=== PATIENT | male | born 1955 | race Caucasian/White ===

== ENCOUNTER 2020-06-17 13:02 | Emergency (ER) | payer OTHER ==
--- NOTE | 2020-06-17 13:32 | ERPHSYRPT ---
- History of Present Illness Time Seen by Provider: 06/17/20 13:15 Source: patient Exam Limitations: no limitations Patient Subjective Stated Complaint: Pt states that he was moving a dresser on 05/25/20 and felt a lump around his umbilicus and then about 2 days after that he began having difficuluty breathing, reports that he can calm himself down and improve his breathing but is unable to today, pt has pain at the lower portion of ribs that goes down to his umbilicus Triage Nursing Assessment: Pt brought to the ER by his self, hypertensive, tachypnea, wheezing, skin n/w/d, pulses normal, rates rib/umbilicus pain as 12/20 Physician History: This is a 64-year-old obese white male who was recently diagnosed (02/2020) with diabetes, hypertension and presumed congestive heart failure and placed on losartan/potassium, furosemide and insulin to treat the above. In the last 2 weeks, the patient states that his shortness of breath has been worsening especially with activity. Today, the patient states he was having more difficulty breathing with activity and was wheezing. Patient denies chest pain. He denies cough. Patient continues to smoke approximately 2 to 3 cigarettes a day in the last 2 to 3 weeks. He is a longtime smoker of cigarettes. Patient's primary care physician is Dr. Roberts. Patient is here for worsening shortness of breath. Patient's room air oxygenation level is 95%. Timing/Duration: week(s) (2 weeks), intermittent, worse Activities at Onset: activity Severity of Dyspnea-Max: mild Severity of Dyspnea-Current: mild Possible Cause: occasional episodes Modifying Factors: Improves With: activity (Worsens) Associated Symptoms: No chest pain/discomfort, No fever, No weakness Allergies/Adverse Reactions: No Known Drug Allergies Allergy (Verified 06/17/20 13:15) Home Medications: Furosemide 40 mg PO DAILY 06/17/20 [History] Insulin Glargine,Hum.rec.anlog [Basaglar Kwikpen U-100] 40 unit SQ BID 06/17/20 [History] Losartan Potassium 100 mg PO DAILY 06/17/20 [History] Potassium Chloride 20 meq PO DAILY 06/17/20 [History] Hx Influenza Vaccination/Date Given: No Travel Risk - International Travel Have you traveled outside of the country in past 3 weeks: No - Coronavirus Screening Are you exhibiting any of the following symptoms?: No Close contact with a COVID-19 positive Pt in past 14-21 Days: No - Review of Systems Constitutional: No Symptoms Eyes: No Symptoms Ears, Nose, & Throat: No Symptoms Respiratory: Dyspnea, Dyspnea on Exertion (CRUZ), Wheezing Cardiac: No Symptoms Abdominal/Gastrointestinal: No Symptoms Genitourinary Symptoms: No Symptoms Musculoskeletal: No Symptoms Skin: No Symptoms Neurological: No Symptoms Psychological: No Symptoms Endocrine: No Symptoms Hematologic/Lymphatic: No Symptoms Immunological/Allergic: No Symptoms All Other Systems: Reviewed and Negative - Past Medical History Pertinent Past Medical History: Yes Neurological History: No Pertinent History ENT History: No Pertinent History Cardiac History: Hypertension Respiratory History: No Pertinent History Endocrine Medical History: Diabetes Type II Musculoskeletal History: No Pertinent History GI Medical History: No Pertinent History History: No Pertinent History Psycho-Social History: No Pertinent History Male Reproductive Disorders: No Pertinent History - Past Surgical History Past Surgical History: Yes Neuro Surgical History: No Pertinent History Cardiac: No Pertinent History Respiratory: No Pertinent History Gastrointestinal: No Pertinent History Genitourinary: No Pertinent History Musculoskeletal: No Pertinent History Male Surgical History: No Pertinent History - Social History Smoking Status: Current every day smoker Exposure to second hand smoke: Yes Drug Use: none Patient Lives Alone: Yes - Nursing Vital Signs Nursing Vital Signs: Initial Vital Signs Respiratory Rate 23 06/17/20 13:04 O2 Sat by Pulse Oximetry 96 06/17/20 13:04 Pain Scale Pain Intensity 5 - Physical Exam General Appearance: no apparent distress, mild distress, alert, anxiety, obese Eye Exam: PERRL/EOMI, eyes nml inspection Ears, Nose, Throat Exam: hearing grossly normal, normal ENT inspection, normal pharynx Neck Exam: normal inspection, non-tender, supple, full range of motion Respiratory Exam: airway intact, wheezing (Bilateral, mild expiratory wheezes), No chest tenderness, No respiratory distress, No stridor Cardiovascular/Chest Exam: normal heart sounds, regular rate/rhythm, murmur, normal peripheral pulses Abdominal/Gastrointestinal Exam: soft, normal bowel sounds, hernia (Reducible umbilical hernia), No tenderness Rectal Exam: not done Extremity Exam: non-tender, normal range of motion, pedal edema (Mild at the fe et and distal ankles bilaterally) Neurologic Exam: alert, oriented x 3, cooperative, plc engineer II-XII nml as tested, normal mood/affect, nml cerebellar function, nml station & gait, sensation nml Skin Exam: normal color, warm, dry Lymphatic Exam: No adenopathy SpO2 Interpretation: normal SpO2: 96 O2 Delivery: Room Air - Course Nursing assessment & vital signs reviewed: Yes EKG Interpreted by Me: RATE ([id number]), Left [place] Deviation, NORMAL INTERVALS, NORMAL QRS, Other (There is ventricular bigeminy noted. No acute ischemic changes. There are no comparison EKGs available) Ordered Tests: Active Orders 24 hr Category Date Time Status Mammalogist STAT Care 06/17/20 13:32 Active EKG-ER Only STAT Care 06/17/20 13:32 Active IV Insertion STAT Care 06/17/20 13:32 Active Pulse Oximetry (ED) STAT Care 06/17/20 13:32 Active CHEST 1 VIEW (PORTABLE) Stat Exams 06/17/20 13:32 Completed BLOOD CULTURE Stat Lab 06/17/20 14:30 Ordered CBC W DIFF Stat Lab 06/17/20 13:10 Completed CMP Stat Lab 06/17/20 13:10 Completed D-DIMER QUANTITATIVE Stat Lab 06/17/20 13:10 Completed NT PRO BNP Stat Lab 06/17/20 13:10 Completed PROTIME WITH INR Stat Lab 06/17/20 13:10 Completed TROPONIN Q3H Lab 06/17/20 13:10 Completed TROPONIN Q3H Lab 06/17/20 16:45 Ordered TROPONIN Q3H Lab 06/17/20 19:45 Ordered TROPONIN Q3H Lab 06/17/20 22:45 Ordered TROPONIN Q3H Lab 06/18/20 01:45 Ordered Respiratory Therapy Assessment DAILY RT 06/17/20 13:50 Active Medication Summary Generic Name Dose Route Start Last Admin Trade Name Freq PRN Reason Stop Dose Admin Ceftriaxone Sodium/Dextrose 1 g in 50 mls @ 100 mls/hr 06/17/20 14:23 Rocephin 1 Gm-D5w 50 Ml Bag IV 06/17/20 14:52 STAT STA Discontinued Medications Generic Name Dose Route Start Last Admin Trade Name Freq PRN Reason Stop Dose Admin Albuterol/Ipratropium Confirm 06/17/20 13:36 Duoneb 0.5-3 Mg/3 Ml Neb Administered 06/17/20 13:37 Dose 3 ml IH .STK-MED ONE Albuterol/Ipratropium 3 ml 06/17/20 13:39 06/17/20 13:46 Duoneb 0.5-3 Mg/3 Ml Neb IH 06/17/20 13:40 3 ml STAT ONE Administration Methylprednisolone Sodium Succinate 125 mg 06/17/20 14:24 Solu-Medrol 125 Mg IV 06/17/20 14:25 STAT ONE Lab/Rad Data: Laboratory Result Diagrams 06/17/20 13:10 06/17/20 13:10 Laboratory Results 06/17/20 06/17/20 06/17/20 Range/Units 13:10 13:10 13:10 WBC (4.0-10.5) K/mm3 RBC (4.1-5.6) M/mm3 Hgb (12.5-18.0) gm/dl Hct (42-50) % MCV (78-100) fl MCH (26-32) pg MCHC (32-36) g/dl RDW (11.5-14.0) % Plt Count (150-450) K/mm3 MPV (7.5-11.0) fl Gran % (36.0-66.0) % Eos # (Auto) (0-0.5) Absolute Lymphs (auto) (1.0-4.6) Absolute Monos (auto) (0.0-1.3) Lymphocytes % (24.0-44.0) % Monocytes % (0.0-12.0) % Eosinophils % (0.00-5.0) % Basophils % (0.0-0.4) % Absolute Granulocytes (1.4-6.9) Basophils # (0-0.4) PT 13.3 H (8.83-12.87) SECONDS INR 1.18 (0.8-3.0) D-Dimer 292 (215-500) ng/mL Sodium 141 (137-145) mmol/L Potassium 4.3 (3.5-5.1) mmol/L Chloride 108 H (98-107) mmol/L Carbon Dioxide 28 (22-30) mmol/L Anion Gap 8.9 (5-15) MEQ/L BUN 16 (9-20) mg/dL Creatinine 0.75 (0.66-1.25) mg/dL Estimated GFR > 60.0 ML/MIN Glucose 99 (74-106) mg/dL Calcium 9.1 (8.4-10.2) mg/dL Total Bilirubin 0.70 (0.2-1.3) mg/dL AST 22 (17-59) U/L ALT 19 (0-50) U/L Alkaline Phosphatase 69 (38-126) U/L Troponin I < 0.012 (0.000-0.034) ng/mL NT-Pro-B Natriuret Pep 195 (0-900) pg/mL Serum Total Protein 6.8 (6.3-8.2) g/dL Albumin 4.1 (3.5-5.0) g/dL 06/17/20 Range/Units 13:10 WBC 11.5 H (4.0-10.5) K/mm3 RBC 4.85 (4.1-5.6) M/mm3 Hgb 15.2 (12.5-18.0) gm/dl Hct 48.4 (42-50) % MCV 99.8 (78-100) fl MCH 31.3 (26-32) pg MCHC 31.4 L (32-36) g/dl RDW 13.9 (11.5-14.0) % Plt Count 260 (150-450) K/mm3 MPV 10.8 (7.5-11.0) fl Gran % 59.6 (36.0-66.0) % Eos # (Auto) 0.23 (0-0.5) Absolute Lymphs (auto) 3.29 (1.0-4.6) Absolute Monos (auto) 1.09 (0.0-1.3) Lymphocytes % 28.6 (24.0-44.0) % Monocytes % 9.5 (0.0-12.0) % Eosinophils % 2.0 (0.00-5.0) % Basophils % 0.3 (0.0-0.4) % Absolute Granulocytes 6.87 (1.4-6.9) Basophils # 0.04 (0-0.4) PT (8.83-12.87) SECONDS INR (0.8-3.0) D-Dimer (215-500) ng/mL Sodium (137-145) mmol/L Potassium (3.5-5.1) mmol/L Chloride (98-107) mmol/L Carbon Dioxide (22-30) mmol/L Anion Gap (5-15) MEQ/L BUN (9-20) mg/dL Creatinine (0.66-1.25) mg/dL Estimated GFR ML/MIN Glucose (74-106) mg/dL Calcium (8.4-10.2) mg/dL Total Bilirubin (0.2-1.3) mg/dL AST (17-59) U/L ALT (0-50) U/L Alkaline Phosphatase (38-126) U/L Troponin I (0.000-0.034) ng/mL NT-Pro-B Natriuret Pep (0-900) pg/mL Serum Total Protein (6.3-8.2) g/dL Albumin (3.5-5.0) g/dL - Progress Progress: improved, re-examined Air Movement: good Progress Note: 06/17/20 14:27 Chest x-ray shows left costophrenic angle infiltrate (mild) versus atelectasis. Blood Culture(s) Obtained: Yes Antibiotics given: Yes Counseled pt/family regarding: lab results, diagnosis, need for follow-up, rad results - Departure Departure Disposition: Home Clinical Impression: Infiltrate of left lung present on chest x-ray Condition: Stable Critical Care Time: No Referrals: GITA ROBERTS [Primary Care Provider] - Additional Instructions: Take your medication as prescribed. Fill your new prescriptions and take as prescribed. Follow-up with your primary care physician for further management. Return to the emergency department if your symptoms worsen. Prescriptions: Prednisone 10 mg [Deltasone 10 mg] 10 mg PO TID #12 tablet Albuterol 8 gm Mdi Hfa [Ventolin Hfa MDI] 8 gm IH Q4H #1 hfa.aer.ad Azithromycin 250 mg [Zithromax 250 MG TABLET] 250 mg PO ZPACK #6 tablet
[2020-06-17] MEDS ORDERED: DUONEB 0.5-3 MG/3 ml Neb IH ONE ×2 (13:36→13:39)
[2020-06-17 13:44] LABS: Absolute Neutrophil Ct (ANC) 6.87 (1.4-6.9); BASOPHIL % 0.3 % (0.0-0.4); Basophil (Absolute #) 0.04 (0-0.4); Eosinophil (Absolute #) 0.23 (0-0.5); Hematocrit 48.4 % (42-50); Hemoglobin 15.2 gm/dl (12.5-18.0); Lymphocyte (Absolute #) 3.29 (1.0-4.6); Lymphocytes % 28.6 % (24.0-44.0); Mean Cell Volume 99.8 fl (78-100); Mean Corpuscular Hemoglobin 31.3 pg (26-32); Mean Corpuscular Hgb Concent. 31.4 g/dl (32-36); Mean Platelet Volume 10.8 fl (7.5-11.0); Monocyte (Absolute #) 1.09 (0.0-1.3); Monocytes % 9.5 % (0.0-12.0); Neutrophil % 59.6 % (36.0-66.0); Platelet Count 260 K/mm3 (150-450); Red Blood Count 4.85 M/mm3 (4.1-5.6); Red Cell Distribution Width 13.9 % (11.5-14.0); White Blood Count 11.5 K/mm3 (4.0-10.5)
[2020-06-17 13:54] VITALS: O2SAT 96
[2020-06-17 13:55] LABS: INR 1.18 (0.8-3.0); PROTIME 13.3 SECONDS (8.83-12.87)
[2020-06-17 14:08] LABS: ALBUMIN 4.1 g/dL (3.5-5.0); ALKALINE PHOSPHATASE 69 U/L (38-126); ANION GAP 8.9 MEQ/L (5-15); BLOOD UREA NITROGEN 16 mg/dL (9-20); CHLORIDE 108 mmol/L (98-107); Calcium 9.1 mg/dL (8.4-10.2); Carbon Dioxide 28 mmol/L (22-30); Creatinine 1 0.75 mg/dL (0.66-1.25); EST GLOMERULAR FILTRATION RATE > 60.0 ML/MIN; Glucose 99 mg/dL (74-106); NT PRO BNP 195 pg/mL (0-900); Potassium 4.3 mmol/L (3.5-5.1); SGOT/AST 22 U/L (17-59); SGPT/ALT 19 U/L (0-50); SODIUM 141 mmol/L (137-145); Total Protein 6.8 g/dL (6.3-8.2)
--- NOTE | 2020-06-17 14:08 | XRAY ---
Indication: Short of breath. Comparison: None Portable chest hyperinflated with left costophrenic angle hazy opacity, infiltrate versus atelectasis. Remaining heart and lungs unremarkable. Bony thorax intact with mild degenerative changes.
[2020-06-17] MEDS ORDERED: ROCEPHIN 1 Gm-D5w 50 ml Bag** 1 G/50 ML IVPB IV STA (14:23)
[2020-06-17] MEDS ORDERED: solu-MEDROL 125 MG IV ONE (14:24)
[2020-06-17] MEDS ORDERED: solu-MEDROL 125 MG ONE (14:29)
[2020-06-17] MEDS ORDERED: ROCEPHIN 1 Gm-D5w 50 ml Bag** 1 G/50 ML IVPB IV ONE (14:30)
[2020-06-17 14:41] VITALS: BP 113/96; PULSE 78
== END 2020-06-17 14:57 | disposition home or self-care (01) ==
LOC: ED 13:02
DX: R91.8 Other nonspecific abnormal finding of lung field (principal); R06.2 Wheezing; E11.9 Type 2 diabetes mellitus without complications; I10 Essential (primary) hypertension; Z79.899 Other long term (current) drug therapy
CPT/HCPCS: 36000; 36415; 71045; 80053; 83880; 84484; 85025; 85379; 85610; 87040; 93005; 93041; 94640; 94760; 96374; 99284; J0696; J2930; A9270-GY

== ENCOUNTER 2021-04-27 16:01 | Observation (INO) | payer OTHER ==
[2021-04-27] MEDS ORDERED: DUONEB 0.5-3 MG/3 ml Neb IH ONE ×2 (16:07→16:37)
[2021-04-27] MEDS ORDERED: solu-MEDROL 125 MG, Sterile H2O 10 ml 2 ML IV ONE ×2 (16:07)
[2021-04-27] MEDS ORDERED: Sodium Chloride 0.9% 1000 ML 1,000 ML IV SCH (16:15)
[2021-04-27] MEDS ORDERED: solu-MEDROL ONE ×2 (16:17→22:57)
[2021-04-27] MEDS ORDERED: Sterile H2O 10 ml IJ ONE ×2 (16:17→22:57)
[2021-04-27] MEDS ORDERED: Sodium Chloride 0.9% 1000 ML 1,000 ML ONE (16:17)
[2021-04-27 16:33] LABS: Absolute Neutrophil Ct (ANC) 7.28 (1.4-6.9); BASOPHIL % 0.5 % (0.0-0.4); Basophil (Absolute #) 0.06 (0-0.4); Eosinophil % 5.6 % (0.00-5.0); Eosinophil (Absolute #) 0.68 (0-0.5); Hematocrit 49.5 % (42-50); Hemoglobin 15.8 gm/dl (12.5-18.0); Lymphocyte (Absolute #) 3.04 (1.0-4.6); Lymphocytes % 25.2 % (24.0-44.0); Mean Cell Volume 99.8 fl (78-100); Mean Corpuscular Hemoglobin 31.9 pg (26-32); Mean Corpuscular Hgb Concent. 31.9 g/dl (32-36); Mean Platelet Volume 10.2 fl (7.5-11.0); Monocytes % 8.3 % (0.0-12.0); Neutrophil % 60.4 % (36.0-66.0); Platelet Count 249 K/mm3 (150-450); Red Blood Count 4.96 M/mm3 (4.1-5.6); Red Cell Distribution Width 13.9 % (11.5-14.0); White Blood Count 12.1 K/mm3 (4.0-10.5)
[2021-04-27 16:40] LABS: INR 1.06 (0.8-3.0); PROTIME 12.5 SECONDS (9.4-12.5)
[2021-04-27 16:53] LABS: ALKALINE PHOSPHATASE 66 U/L (38-126); ANION GAP 12.9 MEQ/L (5-15); BLOOD UREA NITROGEN 18 mg/dL (9-20); CHLORIDE 105 mmol/L (98-107); Calcium 8.8 mg/dL (8.4-10.2); Carbon Dioxide 26 mmol/L (22-30); Creatinine 1 0.85 mg/dL (0.66-1.25); EST GLOMERULAR FILTRATION RATE > 60.0 ML/MIN; Glucose 132 mg/dL (74-106); MAGNESIUM 1.8 mg/dL (1.6-2.3); NT PRO BNP 65.6 pg/mL (0-900); SGOT/AST 19 U/L (17-59); SGPT/ALT 17 U/L (0-50); SODIUM 140 mmol/L (137-145); Total Protein 6.5 g/dL (6.3-8.2)
--- NOTE | 2021-04-27 16:59 | XRAY ---
Indication: Short of breath. Comparison: June 17, 2020. Portable chest is now clear. Heart and mediastinal structures within normal limits. Bony thorax intact again with mild degenerative changes. No new/acute findings.
[2021-04-27 17:04] LABS: D-DIMER QUANTITATIVE < 215 ng/mL (215-500)
[2021-04-27 17:16] LABS: INFLUENZA A NEGATIVE (NEGATIVE); INFLUENZA B NEGATIVE (NEGATIVE)
--- NOTE | 2021-04-27 17:40 | ERPHSYRPT ---
- History of Present Illness Time Seen by Provider: 04/27/21 16:20 Patient Subjective Stated Complaint: SOB x 1 week Triage Nursing Assessment: pt to ED c/o SOB x 1 week. brought down from [facility] for SOB and hypoxia, 90% on RA. pt was 91-92% on RA on arrival to ED. placed on 2L NC and sats 96%. labored breathing with exersion rate WNL. audible wheezing noted. heart sounds clear. does not use supplemental O2 at home. Physician History: Patient is a 65-year-old male with a long history of smoking who presents with a 1 week history of being sick with shortness of breath cough and sputum production. He denies any fever chills or sweats he denies any loss of sense of smell or taste he denies any nausea vomiting diarrhea. He has had his Materna vaccine more than 2 weeks ago his main complaint is shortness of breath and some cough producing some sputum. Timing/Duration: week(s) (1) Activities at Onset: none Severity of Dyspnea-Max: moderate Severity of Dyspnea-Current: moderate Possible Cause: occasional episodes Modifying Factors: Improves With: albuterol nebulizer, coughing, oxygen Associated Symptoms: cough, wheezing, weakness, productive cough Allergies/Adverse Reactions: No Known Drug Allergies Allergy (Verified 04/27/21 16:16) Home Medications: Furosemide 40 mg PO DAILY 06/17/20 [History] Insulin Glargine,Hum.rec.anlog [Basaglar Kwikpen U-100] 40 unit SQ BID 06/17/20 [History] Losartan Potassium 100 mg PO DAILY 06/17/20 [History] Potassium Chloride 20 meq PO DAILY 06/17/20 [History] Hx Tetanus, Diphtheria Vaccination/Date Given: Yes Hx Influenza Vaccination/Date Given: Yes Hx Pneumococcal Vaccination/Date Given: No Immunizations Up to Date: Yes Travel Risk - International Travel Have you traveled outside of the country in past 3 weeks: No - Coronavirus Screening Are you exhibiting any of the following symptoms?: Yes Symptoms: Cough: New Onset, Shortness of Breath Close contact with a COVID-19 positive Pt in past 14-21 Days: No - Vaccine Status Have you recieved a Covid-19 vaccination: Yes Rack Washer: Moderna - Vaccination Dates Date of 2cond Vaccination (if applicable): november - Review of Systems Constitutional: No Fever, No Chills Eyes: No Symptoms Ears, Nose, & Throat: No Symptoms Respiratory: Cough, Dyspnea, Wheezing Cardiac: No Chest Pain, No Edema, No Syncope Abdominal/Gastrointestinal: No Abdominal Pain, No Nausea, No Vomiting, No Diarrhea Genitourinary Symptoms: No Dysuria Musculoskeletal: No Back Pain, No Neck Pain Skin: No Rash Neurological: No Dizziness, No Focal Weakness, No Sensory Changes Psychological: No Symptoms Endocrine: No Symptoms All Other Systems: Reviewed and Negative - Past Medical History Pertinent Past Medical History: Yes Neurological History: No Pertinent History ENT History: No Pertinent History Cardiac History: Hypertension Respiratory History: No Pertinent History Endocrine Medical History: Diabetes Type II Musculoskeletal History: No Pertinent History GI Medical History: No Pertinent History History: No Pertinent History Psycho-Social History: No Pertinent History Male Reproductive Disorders: No Pertinent History - Past Surgical History Past Surgical History: Yes Neuro Surgical History: No Pertinent History Cardiac: No Pertinent History Respiratory: No Pertinent History Gastrointestinal: No Pertinent History Genitourinary: No Pertinent History Musculoskeletal: No Pertinent History Male Surgical History: No Pertinent History - Social History Smoking Status: Current every day smoker How long have you smoked: since 14yo Exposure to second hand smoke: Yes Drug Use: none Patient Lives Alone: Yes - Nursing Vital Signs Nursing Vital Signs: Initial Vital Signs Temperature 97.9 F 04/27/21 16:02 Pulse Rate 83 04/27/21 16:02 Respiratory Rate 17 04/27/21 16:02 Blood Pressure 128/79 04/27/21 16:02 O2 Sat by Pulse Oximetry 92 L 04/27/21 16:02 Pain Scale Pain Intensity 0 - Physical Exam General Appearance: mild distress, alert Eye Exam: PERRL/EOMI Neck Exam: normal inspection, supple Respiratory Exam: respiratory distress (Mild to moderate), airway intact, crackles/rales, rhonchi, wheezing Cardiovascular/Chest Exam: normal heart sounds, regular rate/rhythm Abdominal/Gastrointestinal Exam: soft, No tenderness, No distention, No mass Extremity Exam: non-tender, normal range of motion, normal inspection, no calf tenderness, no pedal edema Neurologic Exam: alert, oriented x 3, cooperative, campaign coordinator II-XII nml as tested, sensation nml, No motor deficits Skin Exam: normal color, warm, No dry SpO2 Interpretation: hypoxic, O2 applied SpO2: 96 O2 Delivery: Nasal Cannula - Course Nursing assessment & vital signs reviewed: Yes EKG Interpreted by Me: RATE ([id number]), Sinus Rhythm, Left [place] Deviation, NORMAL INTERVALS, NORMAL QRS, Non-specific ST Changes Rhythm Strip: Rate - Radiology Exams Chest X-ray Interpretation: Negative Ordered Tests: Active Orders 24 hr Category Date Time Status EKG-ER Only STAT Care 04/27/21 16:07 Active IV Insertion STAT Care 04/27/21 16:07 Active Oxygen-ED Only Nasal Cannula 2 lpm Care 04/27/21 16:07 Active CHEST 1 VIEW (PORTABLE) Stat Exams 04/27/21 16:09 Completed BLOOD CULTURE Stat Lab 04/27/21 16:09 Ordered CBC W DIFF Stat Lab 04/27/21 16:33 Completed CMP Stat Lab 04/27/21 16:33 Completed D-DIMER QUANTITATIVE Stat Lab 04/27/21 16:33 Completed INFLUENZA A+B LUIS Stat Lab 04/27/21 16:50 Completed Lactic Acid Stat Lab 04/27/21 16:07 Completed MAGNESIUM Stat Lab 04/27/21 16:33 Completed NT PRO BNP Stat Lab 04/27/21 16:33 Completed PROTIME WITH INR Stat Lab 04/27/21 16:33 Completed TROPONIN Q3H Lab 04/27/21 16:15 Completed TROPONIN Q3H Lab 04/27/21 19:15 Ordered TROPONIN Q3H Lab 04/27/21 22:15 Ordered TROPONIN Q3H Lab 04/28/21 01:15 Ordered TROPONIN Q3H Lab 04/28/21 04:15 Ordered UA W/RFX UR CULTURE Stat Lab 04/27/21 16:09 Ordered Respiratory Therapy Assessment DAILY RT 04/27/21 17:02 Completed Medication Summary Generic Name Dose Route Start Last Admin Trade Name Freq PRN Reason Stop Dose Admin Sodium Chloride 1,000 mls @ 100 mls/hr 04/27/21 16:15 04/27/21 16:18 Sodium Chloride 0.9% 1000 Ml IV 05/27/21 16:14 100 mls/hr .Q10H JUNAID Administration Discontinued Medications Generic Name Dose Route Start Last Admin Trade Name Freq PRN Reason Stop Dose Admin Albuterol/Ipratropium 3 ml 04/27/21 16:07 04/27/21 16:40 Duoneb 0.5-3 Mg/3 Ml Neb IH 04/27/21 16:08 3 ml STAT ONE Administration Albuterol/Ipratropium Confirm 04/27/21 16:37 Duoneb 0.5-3 Mg/3 Ml Neb Administered 04/27/21 16:38 Dose 3 ml IH .STK-MED ONE Methylprednisolone Sodium 0 mg 04/27/21 16:07 04/27/21 16:18 Succinate 125 mg/ Sterile IV 04/27/21 16:08 125 mg Water 2 ml STAT ONE Administration Methylprednisolone Sodium Succinate Confirm 04/27/21 16:17 Solu-Medrol Administered 04/27/21 16:18 Dose 125 mg .ROUTE .STK-MED ONE Sterile Water Confirm 04/27/21 16:17 Sterile H2o 10 Ml Administered 04/27/21 16:18 Dose 10 ml IJ .STK-MED ONE Lab/Rad Data: Laboratory Result Diagrams 04/27/21 16:33 04/27/21 16:33 Laboratory Results 04/27/21 04/27/21 04/27/21 Range/Units 16:50 16:33 16:33 WBC (4.0-10.5) K/mm3 RBC (4.1-5.6) M/mm3 Hgb (12.5-18.0) gm/dl Hct (42-50) % MCV (78-100) fl MCH (26-32) pg MCHC (32-36) g/dl RDW (11.5-14.0) % Plt Count (150-450) K/mm3 MPV (7.5-11.0) fl Gran % (36.0-66.0) % Eos # (Auto) (0-0.5) Absolute Lymphs (auto) (1.0-4.6) Absolute Monos (auto) (0.0-1.3) Lymphocytes % (24.0-44.0) % Monocytes % (0.0-12.0) % Eosinophils % (0.00-5.0) % Basophils % (0.0-0.4) % Absolute Granulocytes (1.4-6.9) Basophils # (0-0.4) PT 12.5 (9.4-12.5) SECONDS INR 1.06 (0.8-3.0) D-Dimer < 215 L (215-500) ng/mL Sodium 140 (137-145) mmol/L Potassium 4.0 (3.5-5.1) mmol/L Chloride 105 (98-107) mmol/L Carbon Dioxide 26 (22-30) mmol/L Anion Gap 12.9 (5-15) MEQ/L BUN 18 (9-20) mg/dL Creatinine 0.85 (0.66-1.25) mg/dL Estimated GFR > 60.0 ML/MIN Glucose 132 H (74-106) mg/dL Lactic Acid (0.4-2.0) Calcium 8.8 (8.4-10.2) mg/dL Magnesium 1.8 (1.6-2.3) mg/dL Total Bilirubin 0.60 (0.2-1.3) mg/dL AST 19 (17-59) U/L ALT 17 (0-50) U/L Alkaline Phosphatase 66 (38-126) U/L Troponin I (0.000-0.034) ng/mL NT-Pro-B Natriuret Pep 65.6 (0-900) pg/mL Serum Total Protein 6.5 (6.3-8.2) g/dL Albumin 4.0 (3.5-5.0) g/dL Influenza Type A Ag NEGATIVE (NEGATIVE) Influenza Type B Ag NEGATIVE (NEGATIVE) 04/27/21 04/27/21 04/27/21 Range/Units 16:33 16:15 16:07 WBC 12.1 H (4.0-10.5) K/mm3 RBC 4.96 (4.1-5.6) M/mm3 Hgb 15.8 (12.5-18.0) gm/dl Hct 49.5 (42-50) % MCV 99.8 (78-100) fl MCH 31.9 (26-32) pg MCHC 31.9 L (32-36) g/dl RDW 13.9 (11.5-14.0) % Plt Count 249 (150-450) K/mm3 MPV 10.2 (7.5-11.0) fl Gran % 60.4 (36.0-66.0) % Eos # (Auto) 0.68 H (0-0.5) Absolute Lymphs (auto) 3.04 (1.0-4.6) Absolute Monos (auto) 1.00 (0.0-1.3) Lymphocytes % 25.2 (24.0-44.0) % Monocytes % 8.3 (0.0-12.0) % Eosinophils % 5.6 H (0.00-5.0) % Basophils % 0.5 (0.0-0.4) % Absolute Granulocytes 7.28 H (1.4-6.9) Basophils # 0.06 (0-0.4) PT (9.4-12.5) SECONDS INR (0.8-3.0) D-Dimer (215-500) ng/mL Sodium (137-145) mmol/L Potassium (3.5-5.1) mmol/L Chloride (98-107) mmol/L Carbon Dioxide (22-30) mmol/L Anion Gap (5-15) MEQ/L BUN (9-20) mg/dL Creatinine (0.66-1.25) mg/dL Estimated GFR ML/MIN Glucose (74-106) mg/dL Lactic Acid 1.1 (0.4-2.0) Calcium (8.4-10.2) mg/dL Magnesium (1.6-2.3) mg/dL Total Bilirubin (0.2-1.3) mg/dL AST (17-59) U/L ALT (0-50) U/L Alkaline Phosphatase (38-126) U/L Troponin I < 0.012 (0.000-0.034) ng/mL NT-Pro-B Natriuret Pep (0-900) pg/mL Serum Total Protein (6.3-8.2) g/dL Albumin (3.5-5.0) g/dL Influenza Type A Ag (NEGATIVE) Influenza Type B Ag (NEGATIVE) - Progress Progress: unchanged Air Movement: fair Blood Culture(s) Obtained: No Antibiotics given: Yes Discussed with : Michael Will see patient in: hospital (observation) - Departure Departure Disposition: Observation Clinical Impression: COPD exacerbation Condition: Stable Critical Care Time: No Referrals: GITA GRAY [Primary Care Provider] - Instructions: Chronic Obstructive Pulmonary Disease, Exacerbation of COPD (DC)
[2021-04-27] MEDS ORDERED: PROVENTIL 2.5 MG/3 ML NEB IH SCH (21:01)
[2021-04-27] MEDS: solu-MEDROL 60 MG, Sterile H2O 10 ml 2 ML IV SCH ×2 (23:05)
[2021-04-27] MEDS ORDERED: PROVENTIL Solution 2.5 MG/0.5 ML IH ONE (23:23)
[2021-04-27] MEDS: PROVENTIL 2.5 MG/3 ML NEB IH SCH (23:28)
[2021-04-27] MEDS: NORCO 5/325 MG PO PRN (23:43)
[2021-04-27] MEDS: HUMALOG SQ PRN (23:43)
[2021-04-28 01:22] LABS: Appearance CLEAR (CLEAR); Bilirubin NEGATIVE (NEGATIVE); Blood NEGATIVE Ery/ul (0-5); Glucose >=500 mg/dL (NEGATIVE); Ketones NEGATIVE (NEGATIVE); Leukocyte Esterase NEGATIVE (NEGATIVE); Mucus SLIGHT /HPF (NEGATIVE); Nitrite NEGATIVE (NEGATIVE); Protein,Urine Dip NEGATIVE (Negative); Specific Gravity 1.025 (1.005-1.025); Urobilinogen NEGATIVE mg/dL (0-1)
[2021-04-28] MEDS: PROVENTIL 2.5 MG/3 ML NEB IH SCH ×2 (02:36→07:22)
[2021-04-28] MEDS: solu-MEDROL 60 MG, Sterile H2O 10 ml 2 ML IV SCH ×10 (05:18→23:16)
[2021-04-28] MEDS ORDERED: solu-MEDROL ONE (05:22)
[2021-04-28] MEDS ORDERED: Sterile H2O 10 ml IJ ONE (05:22)
[2021-04-28] MEDS: NORCO 5/325 MG PO PRN ×3 (05:51→21:20)
[2021-04-28 06:12] LABS: Hematocrit 51.1 % (42-50); Mean Corpuscular Hemoglobin 31.3 pg (26-32); Mean Corpuscular Hgb Concent. 31.3 g/dl (32-36); Mean Platelet Volume 10.6 fl (7.5-11.0); Platelet Count 258 K/mm3 (150-450); Red Blood Count 5.11 M/mm3 (4.1-5.6); Red Cell Distribution Width 13.7 % (11.5-14.0); White Blood Count 11.6 K/mm3 (4.0-10.5)
[2021-04-28 06:24] LABS: BLOOD UREA NITROGEN 17 mg/dL (9-20); CHLORIDE 104 mmol/L (98-107); Calcium 8.6 mg/dL (8.4-10.2); Carbon Dioxide 25 mmol/L (22-30); Creatinine 1 0.68 mg/dL (0.66-1.25); EST GLOMERULAR FILTRATION RATE > 60.0 ML/MIN; Glucose 217 mg/dL (74-106); Potassium 4.9 mmol/L (3.5-5.1); SODIUM 137 mmol/L (137-145)
--- NOTE | 2021-04-28 08:09 | PCM.HP ---
History of Present Illness - Chief Complaint Chief Complaint: COPD exaserbation History of Present Illness: is a 65 year old male who presented to the ER yesterday, approximately 1 1/2 weeks ago he developed cough and progressive shortness of breath, he has no fever, he is fully vaccinated for covid. He continues to have some tight and wheezing in his chest, currently on oxygen, does not wear oxygen at home. - Review of Systems Constitutional: No Fever, No Chills Respiratory: Cough, Short Of Breath Cardiac: No Chest Pain, No Edema, No Syncope Abdominal/Gastrointestinal: No Abdominal Pain, No Nausea, No Vomiting, No Diarrhea Genitourinary Symptoms: No Dysuria Skin: No Rash All Other Systems: Reviewed and Negative Medications & Allergies Home Medications: Home Medication List Albuterol 8 gm Mdi Hfa [Ventolin Hfa MDI] 8 gm IH Q4H #1 hfa.aer.ad 06/17/20 [Rx Confirmed 04/27/21] Furosemide 40 mg PO DAILY 06/17/20 [History Confirmed 04/27/21] Insulin Glargine,Hum.rec.anlog [Basaglar Kwikpen U-100] 40 unit SQ BID 06/17/20 [History Confirmed 04/27/21] Losartan Potassium 100 mg PO DAILY 06/17/20 [History Confirmed 04/27/21] Potassium Chloride 20 meq PO DAILY 06/17/20 [History Confirmed 04/27/21] Allergies/Adverse Reactions: Allergies Allergy/AdvReac Type Severity Reaction Status Date / Time No Known Drug Allergies Allergy Verified 04/27/21 16:16 - Past Medical History Past Medical History: Yes Neurological History: No Pertinent History ENT History: No Pertinent History Cardiac History: Hypertension Respiratory History: No Pertinent History Endocrine Medical History: Diabetes Type II Musculoskelatal History: No Pertinent History GI Medical History: No Pertinent History History: No Pertinent History Pyscho-Social History: No Pertinent History Male Reproductive Disorders: No Pertinent History - Past Surgical History Past Surgical History: Yes Neuro Surgical History: No Pertinent History Cardiac History: No Pertinent History Respiratory Surgery: No Pertinent History GI Surgical History: No Pertinent History Genitourinary Surgical Hx: No Pertinent History Musculskeletal Surgical Hx: No Pertinent History Male Surgical History: No Pertinent History Other Surgical History: rotator cuff surgery - Social History Smoking Status: Current every day smoker How long have you smoked: since 14yo Exposure to second hand smoke: Yes Alcohol: Occasionally Drug Use: none - Physical Exam Vital Signs: Vital Signs - 24 hr Temp Pulse Resp BP Pulse Ox 04/28/21 07:32 82 20 93 L 04/28/21 07:28 97.6 F 83 18 161/69 92 L 04/28/21 04:00 98.1 F 99 H 24 164/71 94 L 04/28/21 02:39 87 20 94 L 04/27/21 23:38 78 24 159/77 04/27/21 23:25 91 H 20 89 L 04/27/21 21:50 97.6 F 87 27 H 179/86 93 L 04/27/21 21:01 93 L 04/27/21 20:54 83 20 138/97 93 L 04/27/21 20:00 82 18 174/99 92 L 04/27/21 19:00 79 18 149/83 94 L 04/27/21 18:08 60 21 154/85 95 04/27/21 17:40 96 04/27/21 17:03 89 18 96 04/27/21 17:01 81 22 130/55 94 L 04/27/21 16:02 97.9 F 83 19 128/79 96 General Appearance: no apparent distress, obese Neurologic Exam: alert, oriented x 3 Respiratory Exam: prolonged expirations, wheezing Cardiovascular Exam: regular rate/rhythm, normal heart sounds, normal peripheral pulses Gastrointestinal/Abdomen Exam: soft, normal bowel sounds, No tenderness, No mass Extremity Exam: normal inspection, normal range of motion, pelvis stable Skin Exam: normal color, warm, dry, No rash Results - Labs Lab/Micro Results: Lab Results-Last 24 Hours 04/27/21 04/27/21 04/27/21 Range/Units 16:07 16:09 16:15 WBC (4.0-10.5) K/mm3 RBC (4.1-5.6) M/mm3 Hgb (12.5-18.0) gm/dl Hct (42-50) % MCV (78-100) fl MCH (26-32) pg MCHC (32-36) g/dl RDW (11.5-14.0) % Plt Count (150-450) K/mm3 MPV (7.5-11.0) fl Gran % (36.0-66.0) % Eos # (Auto) (0-0.5) Absolute Lymphs (auto) (1.0-4.6) Absolute Monos (auto) (0.0-1.3) Lymphocytes % (24.0-44.0) % Monocytes % (0.0-12.0) % Eosinophils % (0.00-5.0) % Basophils % (0.0-0.4) % Absolute Granulocytes (1.4-6.9) Basophils # (0-0.4) PT (9.4-12.5) SECONDS INR (0.8-3.0) D-Dimer (215-500) ng/mL Sodium (137-145) mmol/L Potassium (3.5-5.1) mmol/L Chloride (98-107) mmol/L Carbon Dioxide (22-30) mmol/L Anion Gap (5-15) MEQ/L BUN (9-20) mg/dL Creatinine (0.66-1.25) mg/dL Estimated GFR ML/MIN Glucose (74-106) mg/dL POC Glucometer (74 to 106) mg/dL Lactic Acid 1.1 (0.4-2.0) Calcium (8.4-10.2) mg/dL Magnesium (1.6-2.3) mg/dL Total Bilirubin (0.2-1.3) mg/dL AST (17-59) U/L ALT (0-50) U/L Alkaline Phosphatase (38-126) U/L Troponin I < 0.012 (0.000-0.034) ng/mL NT-Pro-B Natriuret Pep (0-900) pg/mL Serum Total Protein (6.3-8.2) g/dL Albumin (3.5-5.0) g/dL Urine Color YELLOW (YELLOW) Urine Appearance CLEAR (CLEAR) Urine pH 5.0 (5-6) Ur Specific Maxwell 1.025 (1.005-1.025) Urine Protein NEGATIVE (Negative) Urine Ketones NEGATIVE (NEGATIVE) Urine Blood NEGATIVE (0-5) Zander/ul Urine Nitrite NEGATIVE (NEGATIVE) Urine Bilirubin NEGATIVE (NEGATIVE) Urine Urobilinogen NEGATIVE (0-1) mg/dL Ur Leukocyte Esterase NEGATIVE (NEGATIVE) Urine WBC (Auto) NONE (0-5) /HPF Urine RBC (Auto) NONE (0-2) /HPF U Epithel Cells (Auto) NONE (FEW) /HPF Urine Bacteria (Auto) NONE (NEGATIVE) /HPF Urine Mucus (Auto) SLIGHT (NEGATIVE) /HPF Urine Culture Reflexed NO (NO) Urine Glucose >=500 (NEGATIVE) mg/dL Influenza Type A Ag (NEGATIVE) Influenza Type B Ag (NEGATIVE) SARS-CoV-2 (PCR) (NEGATIVE) 04/27/21 04/27/21 04/27/21 Range/Units 16:33 16:33 16:33 WBC 12.1 H (4.0-10.5) K/mm3 RBC 4.96 (4.1-5.6) M/mm3 Hgb 15.8 (12.5-18.0) gm/dl Hct 49.5 (42-50) % MCV 99.8 (78-100) fl MCH 31.9 (26-32) pg MCHC 31.9 L (32-36) g/dl RDW 13.9 (11.5-14.0) % Plt Count 249 (150-450) K/mm3 MPV 10.2 (7.5-11.0) fl Gran % 60.4 (36.0-66.0) % Eos # (Auto) 0.68 H (0-0.5) Absolute Lymphs (auto) 3.04 (1.0-4.6) Absolute Monos (auto) 1.00 (0.0-1.3) Lymphocytes % 25.2 (24.0-44.0) % Monocytes % 8.3 (0.0-12.0) % Eosinophils % 5.6 H (0.00-5.0) % Basophils % 0.5 (0.0-0.4) % Absolute Granulocytes 7.28 H (1.4-6.9) Basophils # 0.06 (0-0.4) PT 12.5 (9.4-12.5) SECONDS INR 1.06 (0.8-3.0) D-Dimer < 215 L (215-500) ng/mL Sodium 140 (137-145) mmol/L Potassium 4.0 (3.5-5.1) mmol/L Chloride 105 (98-107) mmol/L Carbon Dioxide 26 (22-30) mmol/L Anion Gap 12.9 (5-15) MEQ/L BUN 18 (9-20) mg/dL Creatinine 0.85 (0.66-1.25) mg/dL Estimated GFR > 60.0 ML/MIN Glucose 132 H (74-106) mg/dL POC Glucometer (74 to 106) mg/dL Lactic Acid (0.4-2.0) Calcium 8.8 (8.4-10.2) mg/dL Magnesium 1.8 (1.6-2.3) mg/dL Total Bilirubin 0.60 (0.2-1.3) mg/dL AST 19 (17-59) U/L ALT 17 (0-50) U/L Alkaline Phosphatase 66 (38-126) U/L Troponin I (0.000-0.034) ng/mL NT-Pro-B Natriuret Pep 65.6 (0-900) pg/mL Serum Total Protein 6.5 (6.3-8.2) g/dL Albumin 4.0 (3.5-5.0) g/dL Urine Color (YELLOW) Urine Appearance (CLEAR) Urine pH (5-6) Ur Specific Maxwell (1.005-1.025) Urine Protein (Negative) Urine Ketones (NEGATIVE) Urine Blood (0-5) Zander/ul Urine Nitrite (NEGATIVE) Urine Bilirubin (NEGATIVE) Urine Urobilinogen (0-1) mg/dL Ur Leukocyte Esterase (NEGATIVE) Urine WBC (Auto) (0-5) /HPF Urine RBC (Auto) (0-2) /HPF U Epithel Cells (Auto) (FEW) /HPF Urine Bacteria (Auto) (NEGATIVE) /HPF Urine Mucus (Auto) (NEGATIVE) /HPF Urine Culture Reflexed (NO) Urine Glucose (NEGATIVE) mg/dL Influenza Type A Ag (NEGATIVE) Influenza Type B Ag (NEGATIVE) SARS-CoV-2 (PCR) (NEGATIVE) 04/27/21 04/27/21 04/27/21 Range/Units 16:50 18:32 19:30 WBC (4.0-10.5) K/mm3 RBC (4.1-5.6) M/mm3 Hgb (12.5-18.0) gm/dl Hct (42-50) % MCV (78-100) fl MCH (26-32) pg MCHC (32-36) g/dl RDW (11.5-14.0) % Plt Count (150-450) K/mm3 MPV (7.5-11.0) fl Gran % (36.0-66.0) % Eos # (Auto) (0-0.5) Absolute Lymphs (auto) (1.0-4.6) Absolute Monos (auto) (0.0-1.3) Lymphocytes % (24.0-44.0) % Monocytes % (0.0-12.0) % Eosinophils % (0.00-5.0) % Basophils % (0.0-0.4) % Absolute Granulocytes (1.4-6.9) Basophils # (0-0.4) PT (9.4-12.5) SECONDS INR (0.8-3.0) D-Dimer (215-500) ng/mL Sodium (137-145) mmol/L Potassium (3.5-5.1) mmol/L Chloride (98-107) mmol/L Carbon Dioxide (22-30) mmol/L Anion Gap (5-15) MEQ/L BUN (9-20) mg/dL Creatinine (0.66-1.25) mg/dL Estimated GFR ML/MIN Glucose (74-106) mg/dL POC Glucometer (74 to 106) mg/dL Lactic Acid (0.4-2.0) Calcium (8.4-10.2) mg/dL Magnesium (1.6-2.3) mg/dL Total Bilirubin (0.2-1.3) mg/dL AST (17-59) U/L ALT (0-50) U/L Alkaline Phosphatase (38-126) U/L Troponin I < 0.012 (0.000-0.034) ng/mL NT-Pro-B Natriuret Pep (0-900) pg/mL Serum Total Protein (6.3-8.2) g/dL Albumin (3.5-5.0) g/dL Urine Color (YELLOW) Urine Appearance (CLEAR) Urine pH (5-6) Ur Specific Maxwell (1.005-1.025) Urine Protein (Negative) Urine Ketones (NEGATIVE) Urine Blood (0-5) Zander/ul Urine Nitrite (NEGATIVE) Urine Bilirubin (NEGATIVE) Urine Urobilinogen (0-1) mg/dL Ur Leukocyte Esterase (NEGATIVE) Urine WBC (Auto) (0-5) /HPF Urine RBC (Auto) (0-2) /HPF U Epithel Cells (Auto) (FEW) /HPF Urine Bacteria (Auto) (NEGATIVE) /HPF Urine Mucus (Auto) (NEGATIVE) /HPF Urine Culture Reflexed (NO) Urine Glucose (NEGATIVE) mg/dL Influenza Type A Ag NEGATIVE (NEGATIVE) Influenza Type B Ag NEGATIVE (NEGATIVE) SARS-CoV-2 (PCR) NEGATIVE (NEGATIVE) 04/27/21 04/27/21 04/28/21 Range/Units 21:48 23:00 01:15 WBC (4.0-10.5) K/mm3 RBC (4.1-5.6) M/mm3 Hgb (12.5-18.0) gm/dl Hct (42-50) % MCV (78-100) fl MCH (26-32) pg MCHC (32-36) g/dl RDW (11.5-14.0) % Plt Count (150-450) K/mm3 MPV (7.5-11.0) fl Gran % (36.0-66.0) % Eos # (Auto) (0-0.5) Absolute Lymphs (auto) (1.0-4.6) Absolute Monos (auto) (0.0-1.3) Lymphocytes % (24.0-44.0) % Monocytes % (0.0-12.0) % Eosinophils % (0.00-5.0) % Basophils % (0.0-0.4) % Absolute Granulocytes (1.4-6.9) Basophils # (0-0.4) PT (9.4-12.5) SECONDS INR (0.8-3.0) D-Dimer (215-500) ng/mL Sodium (137-145) mmol/L Potassium (3.5-5.1) mmol/L Chloride (98-107) mmol/L Carbon Dioxide (22-30) mmol/L Anion Gap (5-15) MEQ/L BUN (9-20) mg/dL Creatinine (0.66-1.25) mg/dL Estimated GFR ML/MIN Glucose (74-106) mg/dL POC Glucometer 271 H (74 to 106) mg/dL Lactic Acid (0.4-2.0) Calcium (8.4-10.2) mg/dL Magnesium (1.6-2.3) mg/dL Total Bilirubin (0.2-1.3) mg/dL AST (17-59) U/L ALT (0-50) U/L Alkaline Phosphatase (38-126) U/L Troponin I < 0.012 < 0.012 (0.000-0.034) ng/mL NT-Pro-B Natriuret Pep (0-900) pg/mL Serum Total Protein (6.3-8.2) g/dL Albumin (3.5-5.0) g/dL Urine Color (YELLOW) Urine Appearance (CLEAR) Urine pH (5-6) Ur Specific Maxwell (1.005-1.025) Urine Protein (Negative) Urine Ketones (NEGATIVE) Urine Blood (0-5) Zander/ul Urine Nitrite (NEGATIVE) Urine Bilirubin (NEGATIVE) Urine Urobilinogen (0-1) mg/dL Ur Leukocyte Esterase (NEGATIVE) Urine WBC (Auto) (0-5) /HPF Urine RBC (Auto) (0-2) /HPF U Epithel Cells (Auto) (FEW) /HPF Urine Bacteria (Auto) (NEGATIVE) /HPF Urine Mucus (Auto) (NEGATIVE) /HPF Urine Culture Reflexed (NO) Urine Glucose (NEGATIVE) mg/dL Influenza Type A Ag (NEGATIVE) Influenza Type B Ag (NEGATIVE) SARS-CoV-2 (PCR) (NEGATIVE) 04/28/21 04/28/21 04/28/21 Range/Units 05:35 05:35 05:35 WBC 11.6 H (4.0-10.5) K/mm3 RBC 5.11 (4.1-5.6) M/mm3 Hgb 16.0 (12.5-18.0) gm/dl Hct 51.1 H (42-50) % MCV 100.0 (78-100) fl MCH 31.3 (26-32) pg MCHC 31.3 L (32-36) g/dl RDW 13.7 (11.5-14.0) % Plt Count 258 (150-450) K/mm3 MPV 10.6 (7.5-11.0) fl Gran % (36.0-66.0) % Eos # (Auto) (0-0.5) Absolute Lymphs (auto) (1.0-4.6) Absolute Monos (auto) (0.0-1.3) Lymphocytes % (24.0-44.0) % Monocytes % (0.0-12.0) % Eosinophils % (0.00-5.0) % Basophils % (0.0-0.4) % Absolute Granulocytes (1.4-6.9) Basophils # (0-0.4) PT (9.4-12.5) SECONDS INR (0.8-3.0) D-Dimer (215-500) ng/mL Sodium 137 (137-145) mmol/L Potassium 4.9 D (3.5-5.1) mmol/L Chloride 104 (98-107) mmol/L Carbon Dioxide 25 (22-30) mmol/L Anion Gap 13.0 (5-15) MEQ/L BUN 17 (9-20) mg/dL Creatinine 0.68 (0.66-1.25) mg/dL Estimated GFR > 60.0 ML/MIN Glucose 217 H (74-106) mg/dL POC Glucometer (74 to 106) mg/dL Lactic Acid (0.4-2.0) Calcium 8.6 (8.4-10.2) mg/dL Magnesium 2.0 (1.6-2.3) mg/dL Total Bilirubin (0.2-1.3) mg/dL AST (17-59) U/L ALT (0-50) U/L Alkaline Phosphatase (38-126) U/L Troponin I < 0.012 (0.000-0.034) ng/mL NT-Pro-B Natriuret Pep (0-900) pg/mL Serum Total Protein (6.3-8.2) g/dL Albumin (3.5-5.0) g/dL Urine Color (YELLOW) Urine Appearance (CLEAR) Urine pH (5-6) Ur Specific Maxwell (1.005-1.025) Urine Protein (Negative) Urine Ketones (NEGATIVE) Urine Blood (0-5) Zander/ul Urine Nitrite (NEGATIVE) Urine Bilirubin (NEGATIVE) Urine Urobilinogen (0-1) mg/dL Ur Leukocyte Esterase (NEGATIVE) Urine WBC (Auto) (0-5) /HPF Urine RBC (Auto) (0-2) /HPF U Epithel Cells (Auto) (FEW) /HPF Urine Bacteria (Auto) (NEGATIVE) /HPF Urine Mucus (Auto) (NEGATIVE) /HPF Urine Culture Reflexed (NO) Urine Glucose (NEGATIVE) mg/dL Influenza Type A Ag (NEGATIVE) Influenza Type B Ag (NEGATIVE) SARS-CoV-2 (PCR) (NEGATIVE) 04/28/21 Range/Units 07:12 WBC (4.0-10.5) K/mm3 RBC (4.1-5.6) M/mm3 Hgb (12.5-18.0) gm/dl Hct (42-50) % MCV (78-100) fl MCH (26-32) pg MCHC (32-36) g/dl RDW (11.5-14.0) % Plt Count (150-450) K/mm3 MPV (7.5-11.0) fl Gran % (36.0-66.0) % Eos # (Auto) (0-0.5) Absolute Lymphs (auto) (1.0-4.6) Absolute Monos (auto) (0.0-1.3) Lymphocytes % (24.0-44.0) % Monocytes % (0.0-12.0) % Eosinophils % (0.00-5.0) % Basophils % (0.0-0.4) % Absolute Granulocytes (1.4-6.9) Basophils # (0-0.4) PT (9.4-12.5) SECONDS INR (0.8-3.0) D-Dimer (215-500) ng/mL Sodium (137-145) mmol/L Potassium (3.5-5.1) mmol/L Chloride (98-107) mmol/L Carbon Dioxide (22-30) mmol/L Anion Gap (5-15) MEQ/L BUN (9-20) mg/dL Creatinine (0.66-1.25) mg/dL Estimated GFR ML/MIN Glucose (74-106) mg/dL POC Glucometer 212 H (74 to 106) mg/dL Lactic Acid (0.4-2.0) Calcium (8.4-10.2) mg/dL Magnesium (1.6-2.3) mg/dL Total Bilirubin (0.2-1.3) mg/dL AST (17-59) U/L ALT (0-50) U/L Alkaline Phosphatase (38-126) U/L Troponin I (0.000-0.034) ng/mL NT-Pro-B Natriuret Pep (0-900) pg/mL Serum Total Protein (6.3-8.2) g/dL Albumin (3.5-5.0) g/dL Urine Color (YELLOW) Urine Appearance (CLEAR) Urine pH (5-6) Ur Specific Maxwell (1.005-1.025) Urine Protein (Negative) Urine Ketones (NEGATIVE) Urine Blood (0-5) Zander/ul Urine Nitrite (NEGATIVE) Urine Bilirubin (NEGATIVE) Urine Urobilinogen (0-1) mg/dL Ur Leukocyte Esterase (NEGATIVE) Urine WBC (Auto) (0-5) /HPF Urine RBC (Auto) (0-2) /HPF U Epithel Cells (Auto) (FEW) /HPF Urine Bacteria (Auto) (NEGATIVE) /HPF Urine Mucus (Auto) (NEGATIVE) /HPF Urine Culture Reflexed (NO) Urine Glucose (NEGATIVE) mg/dL Influenza Type A Ag (NEGATIVE) Influenza Type B Ag (NEGATIVE) SARS-CoV-2 (PCR) (NEGATIVE) Accuchecks Date 04/28/21 - Radiology Impressions Radiology Exams & Impressions: Radiology Procedures Category Date Time Status CHEST 1 VIEW (PORTABLE) Stat Exams 04/27/21 16:09 Completed - Other Procedures and Tests Respiratory Therapy 04/27/21 21:01 Oxygen Nasal Cannula 2 lpm 04/27/21 23:46 Flutter Therapy UD 04/27/21 23:53 Respiratory Therapy Assessment DAILY Assessment/Plan (1) COPD exacerbation Current Visit: Yes Status: Acute Assessment & Plan: rocephin/zithromax, nebs and IV solu medrol ordered. currently requiring oxygen but not on at home. will continue to monitor. add lovenox for dvt prophylaxis Code(s): J44.1 - CHRONIC OBSTRUCTIVE PULMONARY DISEASE W (ACUTE) EXACERBATION
[2021-04-28] MEDS: Sodium Chloride 0.9% 1000 ML 1,000 ML IV SCH ×2 (08:18→23:15)
[2021-04-28] MEDS: HUMALOG SQ PRN ×4 (08:29→21:19)
[2021-04-28] MEDS ORDERED: NON-FORMULARY ITEM (Insulin Glargine,Hum.Rec.Anlog [Basaglar Kwikpen U-100] 40 UNIT) SQ SCH (10:00)
[2021-04-28] MEDS ORDERED: NON-FORMULARY ITEM (Potassium Chloride [Potassium Chloride] 20 MEQ) PO SCH (10:00)
[2021-04-28] MEDS ORDERED: NON-FORMULARY ITEM (Losartan Potassium [Losartan Potassium] 100 MG) PO SCH (10:00)
[2021-04-28] MEDS: ROCEPHIN 1 Gm-D5w 50 ml Bag** 1 G/50 ML IVPB IV SCH (10:13)
[2021-04-28] MEDS: Klor Con 10 MEQ PO SCH (10:16)
[2021-04-28] MEDS: Lasix 40 MG PO SCH (10:16)
[2021-04-28] MEDS: Cozaar 50 MG PO SCH (10:16)
[2021-04-28] MEDS: Lantus Insulin SQ SCH ×2 (10:17→21:19)
[2021-04-28] MEDS: ENOXAPARIN SODIUM SQ SCH (10:22)
[2021-04-28] MEDS: Zithromax 500 MG/ 250 ML NaCl Premix 500 MG/250 ML IVPB IV SCH (11:11)
[2021-04-28] MEDS: DUONEB 0.5-3 MG/3 ml Neb IH SCH ×2 (13:04→18:01)
[2021-04-28] MEDS: NICODERM CQ 14 MG TOP SCH (16:42)
[2021-04-29] MEDS: DUONEB 0.5-3 MG/3 ml Neb IH SCH ×4 (01:48→18:46)
[2021-04-29] MEDS: solu-MEDROL 60 MG, Sterile H2O 10 ml 2 ML IV SCH ×6 (05:16→17:36)
[2021-04-29 05:58] LABS: ANION GAP 13.9 MEQ/L (5-15); BLOOD UREA NITROGEN 20 mg/dL (9-20); CHLORIDE 102 mmol/L (98-107); Carbon Dioxide 27 mmol/L (22-30); Creatinine 1 0.75 mg/dL (0.66-1.25); EST GLOMERULAR FILTRATION RATE > 60.0 ML/MIN; Glucose 282 mg/dL (74-106); Potassium 4.6 mmol/L (3.5-5.1); SODIUM 139 mmol/L (137-145)
--- NOTE | 2021-04-29 08:01 | PCM.NOTE ---
Date and Time: 04/29/21 0800 Subjective Assessment: patient notes some improvement in his breathing, requiring oxygen via nasal cannula, was not on any prior to admission. still has some cough and shortness of breath but improving. Objective Exam General Appearance: no apparent distress, obese Neurologic Exam: alert, oriented x 3 Respiratory Exam: prolonged expirations, wheezing Cardiovascular Exam: regular rate/rhythm, normal heart sounds Gastrointestinal/Abdomen Exam: soft, No tenderness, No mass Extremity Exam: normal inspection, normal range of motion OBJECTIVE DATA Vital Signs: Vital Signs - 24 hr Temp Pulse Resp BP Pulse Ox 04/29/21 07:50 88 18 95 04/29/21 04:00 97.6 F 84 20 121/59 92 L 04/29/21 01:48 91 H 18 94 L 04/28/21 23:38 98.7 F 98 H 22 139/64 94 L 04/28/21 19:56 98.5 F 102 H 24 116/54 92 L 04/28/21 16:00 101 H 18 130/60 91 L 04/28/21 13:05 96 H 18 91 L 04/28/21 12:00 98.0 F 86 18 133/63 90 L Pain Assessment - Last Documented Pain Intensity 0 Pain Scale Used 0-10 Pain Scale Intake and Output: Intake & Output 04/26/21 04/27/21 04/28/21 04/29/21 11:59 11:59 11:59 11:59 Intake Total 504 3490 Output Total 4375 Balance 504 -885 Weight 144.4 kg Lab Results: Lab Results-Last 24 Hours 04/28/21 04/28/21 04/28/21 Range/Units 08:15 11:44 15:51 Sodium (137-145) mmol/L Potassium (3.5-5.1) mmol/L Chloride (98-107) mmol/L Carbon Dioxide (22-30) mmol/L Anion Gap (5-15) MEQ/L BUN (9-20) mg/dL Creatinine (0.66-1.25) mg/dL Estimated GFR ML/MIN Glucose (74-106) mg/dL POC Glucometer 255 H 289 H (74 to 106) mg/dL Hemoglobin A1c 7.07 H (4.5-6.0) % Calcium (8.4-10.2) mg/dL 04/28/21 04/29/2104/29/21 Range/Units 21:03 04:35 07:38 Sodium 139 (137-145) mmol/L Potassium 4.6 (3.5-5.1) mmol/L Chloride 102 (98-107) mmol/L Carbon Dioxide 27 (22-30) mmol/L Anion Gap 13.9 (5-15) MEQ/L BUN 20 (9-20) mg/dL Creatinine 0.75 (0.66-1.25) mg/dL Estimated GFR > 60.0 ML/MIN Glucose 282 H (74-106) mg/dL POC Glucometer 348 H 237 H (74 to 106) mg/dL Hemoglobin A1c (4.5-6.0) % Calcium 9.0 (8.4-10.2) mg/dL Radiology Exams: Radiology Procedures Category Date Time Status CHEST 1 VIEW (PORTABLE) Stat Exams 04/27/21 16:09 Completed Assessment/Plan (1) COPD exacerbation Current Visit: Yes Status: Acute Assessment & Plan: continue abx, nebs and steroids at this time. showing some improvement clinically. will likely be ready for discharge tomorrow. Code(s): J44.1 - CHRONIC OBSTRUCTIVE PULMONARY DISEASE W (ACUTE) EXACERBATION
[2021-04-29 08:09] LABS: Hematocrit 50.5 % (42-50); Hemoglobin 15.7 gm/dl (12.5-18.0); Mean Cell Volume 101.6 fl (78-100); Mean Corpuscular Hemoglobin 31.6 pg (26-32); Mean Corpuscular Hgb Concent. 31.1 g/dl (32-36); Mean Platelet Volume 10.3 fl (7.5-11.0); Platelet Count 259 K/mm3 (150-450); Red Blood Count 4.97 M/mm3 (4.1-5.6); Red Cell Distribution Width 13.9 % (11.5-14.0); White Blood Count 24.9 K/mm3 (4.0-10.5)
[2021-04-29 08:43] LABS: BAND 8 % (0.0-2.0); Lymphocytes 4 % (24-44); Monocyte 2 % (0.0-12.0); Neutrophils 86 % (36.-66.); Total Cells Counted 100
[2021-04-29 08:44] LABS: Macrocytosis 1+; Platelet Estimate NORMAL (NORMAL); Toxic Granulation 1+
[2021-04-29 08:45] LABS: Absolute Neutrophil Ct (ANC) 23.4 (1.4-6.9)
[2021-04-29] MEDS: ROCEPHIN 1 Gm-D5w 50 ml Bag** 1 G/50 ML IVPB IV SCH (10:34)
[2021-04-29] MEDS: Cozaar 50 MG PO SCH (10:37)
[2021-04-29] MEDS: NORCO 5/325 MG PO PRN (10:37)
[2021-04-29] MEDS: Lasix 40 MG PO SCH (10:37)
[2021-04-29] MEDS: Klor Con 10 MEQ PO SCH (10:37)
[2021-04-29] MEDS: HUMALOG SQ PRN ×4 (10:39→21:47)
[2021-04-29] MEDS: ENOXAPARIN SODIUM SQ SCH (10:39)
[2021-04-29] MEDS: Lantus Insulin SQ SCH ×2 (10:39→21:47)
[2021-04-29] MEDS: Zithromax 500 MG/ 250 ML NaCl Premix 500 MG/250 ML IVPB IV SCH (12:18)
[2021-04-29] MEDS: NICODERM CQ 14 MG TOP SCH (17:39)
[2021-04-29] MEDS: Sodium Chloride 0.9% 1000 ML 1,000 ML IV SCH ×2 (19:31→21:48)
[2021-04-30] MEDS: solu-MEDROL 60 MG, Sterile H2O 10 ml 2 ML IV SCH ×6 (00:03→12:43)
[2021-04-30] MEDS: DUONEB 0.5-3 MG/3 ml Neb IH SCH ×3 (00:20→12:15)
[2021-04-30] MEDS: NORCO 5/325 MG PO PRN (04:38)
[2021-04-30 06:47] LABS: ANION GAP 11.4 MEQ/L (5-15); BLOOD UREA NITROGEN 19 mg/dL (9-20); CHLORIDE 104 mmol/L (98-107); Calcium 8.6 mg/dL (8.4-10.2); Carbon Dioxide 28 mmol/L (22-30); Creatinine 1 0.71 mg/dL (0.66-1.25); EST GLOMERULAR FILTRATION RATE > 60.0 ML/MIN; Glucose 225 mg/dL (74-106); Potassium 4.1 mmol/L (3.5-5.1); SODIUM 140 mmol/L (137-145)
[2021-04-30] MEDS: Klor Con 10 MEQ PO SCH (08:41)
[2021-04-30] MEDS: Lantus Insulin SQ SCH (08:42)
[2021-04-30] MEDS: Zithromax 500 MG/ 250 ML NaCl Premix 500 MG/250 ML IVPB IV SCH (08:42)
[2021-04-30] MEDS: Lasix 40 MG PO SCH (08:42)
[2021-04-30] MEDS: Cozaar 50 MG PO SCH (08:42)
[2021-04-30] MEDS: ENOXAPARIN SODIUM SQ SCH (08:44)
--- NOTE | 2021-04-30 10:18 | PCM.NOTE ---
Date and Time: 04/30/21 1015 Subjective Assessment: doing better. still require 3 L oxygen nasal cannula. patient wants to go home. Will try to make arrangement of oxygen at home and if so paln to discharge home today - Review of Systems Constitutional: No Fever, No Chills Eyes: No Symptoms Ears, Nose, & Throat: No Symptoms Respiratory: Short Of Breath, No Cough, No Orthopnea, No Wheezing Cardiac: No Chest Pain, No Edema, No Syncope Abdominal/Gastrointestinal: No Abdominal Pain, No Nausea, No Vomiting, No Diarrhea Genitourinary Symptoms: No Dysuria Musculoskeletal: No Back Pain, No Neck Pain Skin: No Rash Neurological: No Dizziness, No Focal Weakness, No Sensory Changes Psychological: No Symptoms Endocrine: No Symptoms Hematologic/Lymphatic: No Symptoms Immunological/Allergic: No Symptoms Objective Exam General Appearance: no apparent distress, alert Neurologic Exam: alert, oriented x 3, cooperative, normal mood/affect, sensation nml, No motor deficits, No sensory deficit Skin Exam: normal color, warm, dry Eye Exam: PERRL, EOMI, eyes nml inspection Ears, Nose, Throat Exam: normal ENT inspection, pharynx normal, moist mucous membranes Neck Exam: normal inspection, non-tender, supple, full range of motion Respiratory Exam: diminished breath sounds, No respiratory distress Cardiovascular Exam: regular rate/rhythm, normal heart sounds Gastrointestinal/Abdomen Exam: soft, No tenderness, No mass Extremity Exam: normal inspection, normal range of motion Back Exam: normal inspection, normal range of motion, No CVA tenderness, No vertebral tenderness Male Genitalia Exam: deferred Rectal Exam: deferred OBJECTIVE DATA Vital Signs: Vital Signs - 24 hr Temp Pulse Resp BP Pulse Ox 04/30/21 08:00 97.5 F 66 18 145/65 04/30/21 04:52 97 H 20 91 L 04/30/21 04:00 97.6 F 92 H 22 124/61 92 L 04/30/21 00:22 94 H 20 92 L 04/30/21 00:20 72 22 140/70 92 L 04/29/21 20:38 98.6 F 105 H 22 138/60 95 04/29/21 18:49 106 H 22 91 L 04/29/21 16:00 97.8 F 102 H 20 127/64 91 L 04/29/21 13:35 99 H 18 91 L 04/29/21 12:00 98.3 F 95 H 20 133/61 91 L Pain Assessment - Last Documented Pain Intensity 0 Pain Scale Used 0-10 Pain Scale Intake and Output: Intake & Output 04/27/21 04/28/21 04/29/21 04/30/21 11:59 11:59 11:59 11:59 Intake Total 504 4210 1080 Output Total 4375 7440 Balance 504 165 -1620 Weight 144.4 kg Lab Results: Lab Results-Last 24 Hours 04/29/21 04/29/21 04/29/21 Range/Units 11:54 16:05 21:19 Sodium (137-145) mmol/L Potassium (3.5-5.1) mmol/L Chloride (98-107) mmol/L Carbon Dioxide (22-30) mmol/L Anion Gap (5-15) MEQ/L BUN (9-20) mg/dL Creatinine (0.66-1.25) mg/dL Estimated GFR ML/MIN Glucose (74-106) mg/dL POC Glucometer 363 H 426 H 427 H (74 to 106) mg/dL Calcium (8.4-10.2) mg/dL 04/30/21 04/30/21 Range/Units 06:20 07:31 Sodium 140 (137-145) mmol/L Potassium 4.1 (3.5-5.1) mmol/L Chloride 104 (98-107) mmol/L Carbon Dioxide 28 (22-30) mmol/L Anion Gap 11.4 (5-15) MEQ/L BUN 19 (9-20) mg/dL Creatinine 0.71 (0.66-1.25) mg/dL Estimated GFR > 60.0 ML/MIN Glucose 225 H (74-106) mg/dL POC Glucometer 201 H (74 to 106) mg/dL Calcium 8.6 (8.4-10.2) mg/dL Assessment/Plan (1) COPD exacerbation Current Visit: Yes Status: Acute Assessment & Plan: patient wants to go home. Will try to make arrangement of oxygen at home and if so paln to discharge home today Chief Complaint Diagnosis COPD exaserbation Allergies Allergy/AdvReac Type Severity Reaction Status Date / Time No Known Drug Allergies Allergy Verified 04/27/21 16:16 Vital Signs (Last 24 hours) Temp Pulse Resp BP Pulse Ox 04/30/21 08:00 97.5 F 66 18 145/65 04/30/21 04:52 97 H 20 91 L 04/30/21 04:00 97.6 F 92 H 22 124/61 92 L 04/30/21 00:22 94 H 20 92 L 04/30/21 00:20 72 22 140/70 92 L 04/29/21 20:38 98.6 F 105 H 22 138/60 95 04/29/21 18:49 106 H 22 91 L 04/29/21 16:00 97.8 F 102 H 20 127/64 91 L 04/29/21 13:35 99 H 18 91 L 04/29/21 12:00 98.3 F 95 H 20 133/61 91 L Current Medications Generic Name Dose Route Start Last Admin Trade Name Freq PRN Reason Stop Dose Admin Hydrocodone Bitart/Acetaminophen 1 tab 04/28/21 06:15 04/30/21 04:38 [place] 5/325 Mg PO 05/02/21 23:34 1 tab Q6H/PRN PRN Administration PAIN Albuterol/Ipratropium 3 ml 04/28/21 13:00 04/30/21 04:50 Duoneb 0.5-3 Mg/3 Ml Neb IH 05/28/21 12:59 3 ml Q6HRT JUNAID Administration Methylprednisolone Sodium 0 mg 04/27/21 21:01 04/30/21 07:13 Succinate 60 mg/ Sterile Water IV 05/27/21 21:00 2 mg 2 ml Q6HT JUNAID Administration Enoxaparin Sodium 40 mg 04/28/21 10:00 04/30/21 08:44 Enoxaparin Sodium SQ 05/28/21 09:59 40 mg DAILY JUNAID Administration Furosemide 40 mg 04/28/21 10:00 04/30/21 08:42 Lasix 40 Mg PO 05/28/21 09:59 40 mg DAILY JUNAID Administration Sodium Chloride 1,000 mls @ 50 mls/hr 04/27/21 21:01 04/29/21 21:48 Sodium Chloride 0.9% 1000 Ml IV 05/27/21 21:00 50 mls/hr .Q20H JUNAID Administration Ceftriaxone Sodium/Dextrose 1 g in 50 mls @ 100 mls/hr 04/28/21 10:00 04/29/21 10:34 Rocephin 1 Gm-D5w 50 Ml Bag IV 05/01/21 09:59 100 mls/hr Q24H10 JUNAID Administration Azithromycin 500 mg in 250 mls @ 250 mls/hr 04/28/21 10:00 04/30/21 08:42 Zithromax 500 Mg/ 250 Ml Nacl Premix IV 05/28/21 09:59 250 mls/hr Q24H10 JUNAID Administration Insulin Glargine 40 unit 04/28/21 10:00 04/30/21 08:42 Lantus Insulin SQ 05/28/21 09:59 40 unit BID JUNAID Administration Insulin Human Lispro 0 unit 04/27/21 23:35 04/29/21 21:47 Humalog SQ 05/27/21 23:34 13 unit UD PRN Administration HYPERGLYCEMIA Losartan Potassium 100 mg 04/28/21 10:00 04/30/21 08:42 Cozaar 50 Mg PO 05/28/21 09:59 100 mg DAILY JUNAID Administration Nicotine 14 mg 04/28/21 16:15 04/29/21 17:39 Nicoderm Cq 14 Mg TOP 05/28/21 16:14 14 mg Q24H JUNAID Administration Potassium Chloride 20 meq 04/28/21 10:00 04/30/21 08:41 Klor Con 10 Meq PO 05/28/21 09:59 20 meq DAILY JUNAID Administration Discontinued Medications Generic Name Dose Route Start Last Admin Trade Name Freq PRN Reason Stop Dose Admin Hydrocodone Bitart/Acetaminophen 1 tab 04/27/21 23:35 04/28/21 05:51 [place] 5/325 Mg PO 05/02/21 23:34 1 tab Q6H PRN Administration PAIN Albuterol Sulfate 2.5 mg 04/27/21 21:01 Proventil 2.5 Mg/3 Ml Neb IH 05/27/21 21:00 Q4HRT JUNAID Albuterol Sulfate 2.5 mg 04/27/21 23:00 04/28/21 07:22 Proventil 2.5 Mg/3 Ml Neb IH 05/27/21 22:59 2.5 mg Q4HRT JUNAID Administration Albuterol Sulfate Confirm 04/27/21 23:23 Proventil Solution 2.5 Mg/0.5 Ml Administered 04/27/21 23:24 Dose 2.5 mg IH .STK-MED ONE Albuterol/Ipratropium 3 ml 04/27/21 16:07 04/27/21 16:40 Duoneb 0.5-3 Mg/3 Ml Neb IH 04/27/21 16:08 3 ml STAT ONE Administration Albuterol/Ipratropium Confirm 04/27/21 16:37 Duoneb 0.5-3 Mg/3 Ml Neb Administered 04/27/21 16:38 Dose 3 ml IH .STK-MED ONE Methylprednisolone Sodium 0 mg 04/27/21 16:07 04/27/21 16:18 Succinate 125 mg/ Sterile IV 04/27/21 16:08 125 mg Water 2 ml STAT ONE Administration Sodium Chloride 1,000 mls @ 100 mls/hr 04/27/21 16:15 04/27/21 16:18 Sodium Chloride 0.9% 1000 Ml IV 05/27/21 16:14 100 mls/hr .Q10H JUNAID Administration Sodium Chloride Confirm 04/27/21 16:17 Sodium Chloride 0.9% 1000 Ml Administered 04/27/21 16:18 Dose 1,000 mls @ ud .ROUTE .STK-MED ONE Methylprednisolone Sodium Succinate Confirm 04/27/21 16:17 Solu-Medrol Administered 04/27/21 16:18 Dose 125 mg .ROUTE .STK-MED ONE Methylprednisolone Sodium Succinate Confirm 04/27/21 22:57 Solu-Medrol Administered 04/27/21 22:58 Dose 125 mg .ROUTE .STK-MED ONE Methylprednisolone Sodium Succinate Confirm 04/28/21 05:22 Solu-Medrol Administered 04/28/21 05:23 Dose 125 mg .ROUTE .STK-MED ONE Sterile Water Confirm 04/27/21 16:17 Sterile H2o 10 Ml Administered 04/27/21 16:18 Dose 10 ml IJ .STK-MED ONE Sterile Water Confirm 04/27/21 22:57 Sterile H2o 10 Ml Administered 04/27/21 22:58 Dose 10 ml IJ .STK-MED ONE Sterile Water Confirm 04/28/21 05:22 Sterile H2o 10 Ml Administered 04/28/21 05:23 Dose 10 ml IJ .STK-MED ONE Intake & Output (Last 24 hours) 04/27/21 04/28/21 04/29/21 04/30/21 11:59 11:59 11:59 11:59 Intake Total 504 4210 1080 Output Total 4375 2700 Balance 504 -165 -1620 Weight 144.4 kg Microbiology Results (Last 24 hours) 04/27/21 14:50 Blood Blood Culture Gram Stain - Pending 04/27/21 14:50 Blood Blood Culture - Preliminary NO GROWTH TO DATE 04/27/21 14:30 Blood Blood Culture Gram Stain - Pending 04/27/21 14:30 Blood Blood Culture - Preliminary NO GROWTH TO DATE Laboratory Results (Last 24 hours) 04/30/21 04/30/21 04/29/21 07:31 06:20 21:19 Sodium 140 Potassium 4.1 Chloride 104 Carbon Dioxide 28 Anion Gap 11.4 BUN 19 Creatinine 0.71 Estimated GFR > 60.0 Glucose 225 H POC Glucometer 201 H 427 H Calcium 8.6 04/29/21 04/29/21 16:05 11:54 Sodium Potassium Chloride Carbon Dioxide Anion Gap BUN Creatinine Estimated GFR Glucose POC Glucometer 426 H 363 H Calcium Orders (Last 24 hours) Category Date Time Status BMP AM.LAB Lab 04/30/21 06:20 Completed POCT GLUCOSE Stat Lab 04/29/21 11:54 Completed POCT GLUCOSE Stat Lab 04/29/21 16:05 Completed POCT GLUCOSE Stat Lab 04/29/21 21:19 Completed POCT GLUCOSE Stat Lab 04/30/21 07:31 Completed Patient Care Notes (Last 24 hours) 04/30/21 09:52 Nursing Note by Milly Little ROUNDED WITH [facility] MALIK TO SEND PATIENT HOME WITH HOME OXYGEN. Initialized on 04/30/21 09:52 - END OF NOTE Code(s): J44.1 - CHRONIC OBSTRUCTIVE PULMONARY DISEASE W (ACUTE) EXACERBATION
[2021-04-30 12:08] VITALS: BP 128/70
[2021-04-30 12:19] VITALS: PULSE 107; O2SAT 93
[2021-04-30] MEDS: ROCEPHIN 1 Gm-D5w 50 ml Bag** 1 G/50 ML IVPB IV SCH (12:26)
[2021-04-30] MEDS: HUMALOG SQ PRN (12:45)
--- NOTE | 2021-04-30 15:10 | PCM.DS ---
Discharge Summary Date of Admission: 04/27/21 20:55 Admitting Physician: BERLIN MAHAJAN Primary Care Provider: GITA GRAY Allergies Allergies No Known Drug Allergies Allergy (Verified 04/27/21 16:16) Hospital Summary - Hospital Course Hospital Course: Chief Complaint Diagnosis COPD exaserbation Allergies Allergy/AdvReac Type Severity Reaction Status Date / Time No Known Drug Allergies Allergy Verified 04/27/21 16:16 Vital Signs (Last 24 hours) Temp Pulse Resp BP Pulse Ox 04/30/21 12:18 107 H 22 93 L 04/30/21 12:00 98.0 F 97 H 22 128/70 96 04/30/21 08:00 97.5 F 66 18 145/65 04/30/21 04:52 97 H 20 91 L 04/30/21 04:00 97.6 F 92 H 22 124/61 92 L 04/30/21 00:22 94 H 20 92 L 04/30/21 00:20 72 22 140/70 92 L 04/29/21 20:38 98.6 F 105 H 22 138/60 95 04/29/21 18:49 106 H 22 91 L 04/29/21 16:00 97.8 F 102 H 20 127/64 91 L Home Medications Medication Instructions Recorded Confirmed Last Taken Type Albuterol 8 gm Mdi Hfa 8 gm IH Q4H #1 04/30/21 Unknown Rx [Ventolin Hfa MDI] Methylprednisolone 4 mg [Medrol 4 mg PO UD #1 packet 04/30/21 Unknown Rx 4 mg] Current Medications Generic Name Dose Route Start Last Admin Trade Name Freq PRN Reason Stop Dose Admin Hydrocodone Bitart/Acetaminophen 1 tab 04/28/21 06:15 04/30/21 04:38 [place] 5/325 Mg PO 05/02/21 23:34 1 tab Q6H/PRN PRN Administration PAIN Albuterol/Ipratropium 3 ml 04/28/21 13:00 04/30/21 12:15 Duoneb 0.5-3 Mg/3 Ml Neb IH 05/28/21 12:59 3 ml Q6HRT JUNAID Administration Methylprednisolone Sodium 0 mg 04/27/21 21:01 04/30/21 12:43 Succinate 60 mg/ Sterile Water IV 05/27/21 21:00 60 mg 2 ml Q6HT JUNAID Administration Enoxaparin Sodium 40 mg 04/28/21 10:00 04/30/21 08:44 Enoxaparin Sodium SQ 05/28/21 09:59 40 mg DAILY JUNAID Administration Furosemide 40 mg 04/28/21 10:00 04/30/21 08:42 Lasix 40 Mg PO 05/28/21 09:59 40 mg DAILY JUNAID Administration Sodium Chloride 1,000 mls @ 50 mls/hr 04/27/21 21:01 04/29/21 21:48 Sodium Chloride 0.9% 1000 Ml IV 05/27/21 21:00 50 mls/hr .Q20H JUNAID Administration Ceftriaxone Sodium/Dextrose 1 g in 50 mls @ 100 mls/hr 04/28/21 10:00 04/30/21 12:26 Rocephin 1 Gm-D5w 50 Ml Bag IV 05/02/21 09:59 100 mls/hr Q24H10 JUNAID Administration Azithromycin 500 mg in 250 mls @ 250 mls/hr 04/28/21 10:00 04/30/21 08:42 Zithromax 500 Mg/ 250 Ml Nacl Premix IV 05/28/21 09:59 250 mls/hr Q24H10 JUNAID Administration Insulin Glargine 40 unit 04/28/21 10:00 04/30/21 08:42 Lantus Insulin SQ 05/28/21 09:59 40 unit BID JUNAID Administration Insulin Human Lispro 0 unit 04/27/21 23:35 04/30/21 12:45 Humalog SQ 05/27/21 23:34 11 unit UD PRN Administration HYPERGLYCEMIA Losartan Potassium 100 mg 04/28/21 10:00 04/30/21 08:42 Cozaar 50 Mg PO 05/28/21 09:59 100 mg DAILY JUNAID Administration Nicotine 14 mg 04/28/21 16:15 04/29/21 17:39 Nicoderm Cq 14 Mg TOP 05/28/21 16:14 14 mg Q24H JUNAID Administration Potassium Chloride 20 meq 04/28/21 10:00 04/30/21 08:41 Klor Con 10 Meq PO 05/28/21 09:59 20 meq DAILY JUNAID Administration Discontinued Medications Generic Name Dose Route Start Last Admin Trade Name Freq PRN Reason Stop Dose Admin Hydrocodone Bitart/Acetaminophen 1 tab 04/27/21 23:35 04/28/21 05:51 [place] 5/325 Mg PO 05/02/21 23:34 1 tab Q6H PRN Administration PAIN Albuterol Sulfate 2.5 mg 04/27/21 21:01 Proventil 2.5 Mg/3 Ml Neb IH 05/27/21 21:00 Q4HRT JUNAID Albuterol Sulfate 2.5 mg 04/27/21 23:00 04/28/21 07:22 Proventil 2.5 Mg/3 Ml Neb IH 05/27/21 22:59 2.5 mg Q4HRT JUNAID Administration Albuterol Sulfate Confirm 04/27/21 23:23 Proventil Solution 2.5 Mg/0.5 Ml Administered 04/27/21 23:24 Dose 2.5 mg IH .STK-MED ONE Albuterol/Ipratropium 3 ml 04/27/21 16:07 04/27/21 16:40 Duoneb 0.5-3 Mg/3 Ml Neb IH 04/27/21 16:08 3 ml STAT ONE Administration Albuterol/Ipratropium Confirm 04/27/21 16:37 Duoneb 0.5-3 Mg/3 Ml Neb Administered 04/27/21 16:38 Dose 3 ml IH .STK-MED ONE Methylprednisolone Sodium 0 mg 04/27/21 16:07 04/27/21 16:18 Succinate 125 mg/ Sterile IV 04/27/21 16:08 125 mg Water 2 ml STAT ONE Administration Sodium Chloride 1,000 mls @ 100 mls/hr 04/27/21 16:15 04/27/21 16:18 Sodium Chloride 0.9% 1000 Ml IV 05/27/21 16:14 100 mls/hr .Q10H JUNAID Administration Sodium Chloride Confirm 04/27/21 16:17 Sodium Chloride 0.9% 1000 Ml Administered 04/27/21 16:18 Dose 1,000 mls @ ud .ROUTE .STK-MED ONE Methylprednisolone Sodium Succinate Confirm 04/27/21 16:17 Solu-Medrol Administered 04/27/21 16:18 Dose 125 mg .ROUTE .STK-MED ONE Methylprednisolone Sodium Succinate Confirm 04/27/21 22:57 Solu-Medrol Administered 04/27/21 22:58 Dose 125 mg .ROUTE .STK-MED ONE Methylprednisolone Sodium Succinate Confirm 04/28/21 05:22 Solu-Medrol Administered 04/28/21 05:23 Dose 125 mg .ROUTE .STK-MED ONE Sterile Water Confirm 04/27/21 16:17 Sterile H2o 10 Ml Administered 04/27/21 16:18 Dose 10 ml IJ .STK-MED ONE Sterile Water Confirm 04/27/21 22:57 Sterile H2o 10 Ml Administered 04/27/21 22:58 Dose 10 ml IJ .STK-MED ONE Sterile Water Confirm 04/28/21 05:22 Sterile H2o 10 Ml Administered 04/28/21 05:23 Dose 10 ml IJ .STK-MED ONE Intake & Output (Last 24 hours) 04/28/21 04/29/21 04/30/21 05/01/21 11:59 11:59 11:59 11:59 Intake Total 504 4210 1080 360 Output Total 4375 2700 Balance 504 -165 -1620 360 Weight 144.4 kg Laboratory Results (Last 24 hours) 04/30/21 04/30/21 04/30/21 11:24 07:31 06:20 Sodium 140 Potassium 4.1 Chloride 104 Carbon Dioxide 28 Anion Gap 11.4 BUN 19 Creatinine 0.71 Estimated GFR > 60.0 Glucose 225 H POC Glucometer 369 H 201 H Calcium 8.6 04/29/21 04/29/21 21:19 16:05 Sodium Potassium Chloride Carbon Dioxide Anion Gap BUN Creatinine Estimated GFR Glucose POC Glucometer 427 H 426 H Calcium Orders (Last 24 hours) Category Date Time Status Discharge Routine Discharge 04/30/21 Ordered Discharge/Telephone Order Routine Discharge 04/30/21 Active BMP AM.LAB Lab 04/30/21 06:20 Completed POCT GLUCOSE Stat Lab 04/29/21 16:05 Completed POCT GLUCOSE Stat Lab 04/29/21 21:19 Completed POCT GLUCOSE Stat Lab 04/30/21 07:31 Completed POCT GLUCOSE Stat Lab 04/30/21 11:24 Completed Qualify for Home Oxygen TODAY RT 04/30/21 14:32 Active Patient Care Notes (Last 24 hours) 04/30/21 14:44 Nursing Note by Milly Little CALLED [facility] [phone] AND SPOKE WITH GEOINT ANALYST NURSE TO SET UP OXYGEN FOR PATIENT. INFORMATION WAS GIVEN. PATIENT WILL DISCHARGE WITH PORTABLE TANK AND [facility] WILL BE OUT TO SET UP PATIENT'S EQUIPMENT AFTER PATIENT IS DISCHARGED. Initialized on 04/30/21 14:44 - END OF NOTE 04/30/21 14:20 Nursing Note by Milly Little PATIENT O2 SATURATION WAS 93% ON ROOM AIR WHILE RESTING IN CHAIR. PATIENT O2 SATURATION WAS 85% ON ROOM AIR WHILE WALKING 200 FEET. PATIENT WAS 92% ON 2L WHILE WALKING 200 FEET. Initialized on 04/30/21 14:20 - END OF NOTE 04/30/21 12:51 Nursing Note by Mary Alice Barnett PATIENT O2 93% ON ROOM AIR, TALKING ON TELEPHONE AT THIS TIME. Initialized on 04/30/21 12:51 - END OF NOTE 04/30/21 09:52 Nursing Note by Milly Little ROUNDED WITH TONI MALIK TO SEND PATIENT HOME WITH HOME OXYGEN. Initialized on 04/30/21 09:52 - END OF NOTE - Vitals & Intake/Output Vital Signs: Vital Signs Temperature 98.0 F 04/30/21 12:00 Pulse Rate 107 H 04/30/21 12:18 Respiratory Rate 22 04/30/21 12:18 Blood Pressure 128/70 04/30/21 12:00 O2 Sat by Pulse Oximetry 93 L 04/30/21 12:18 Intake & Output: Intake & Output 04/28/21 04/29/21 04/30/21 05/01/21 11:59 11:59 11:59 11:59 Intake Total 504 4210 1080 360 Output Total 4376 2700 Balance 504 -165 -1620 360 Weight 144.4 kg - Lab Result Diagrams: 04/29/21 04:35 04/30/21 06:20 Lab Results-Last 24 Hrs: Lab Results-Last 24 Hours 04/29/21 04/29/21 04/30/21 Range/Units 16:05 21:19 06:20 Sodium 140 (137-145) mmol/L Potassium 4.1 (3.5-5.1) mmol/L Chloride 104 (98-107) mmol/L Carbon Dioxide 28 (22-30) mmol/L Anion Gap 11.4 (5-15) MEQ/L BUN 19 (9-20) mg/dL Creatinine 0.71 (0.66-1.25) mg/dL Estimated GFR > 60.0 ML/MIN Glucose 225 H (74-106) mg/dL POC Glucometer 426 H 427 H (74 to 106) mg/dL Calcium 8.6 (8.4-10.2) mg/dL 04/30/21 04/30/21 Range/Units 07:31 11:24 Sodium (137-145) mmol/L Potassium (3.5-5.1) mmol/L Chloride (98-107) mmol/L Carbon Dioxide (22-30) mmol/L Anion Gap (5-15) MEQ/L BUN (9-20) mg/dL Creatinine (0.66-1.25) mg/dL Estimated GFR ML/MIN Glucose (74-106) mg/dL POC Glucometer 201 H 369 H (74 to 106) mg/dL Calcium (8.4-10.2) mg/dL Micro Results-Entire Visit: Microbiology 04/27/21 14:50 Blood Culture - Preliminary Blood NO GROWTH TO DATE 04/27/21 14:30 Blood Culture - Preliminary Blood NO GROWTH TO DATE Accuchecks Date 04/29/21 Date 04/29/21 Time 16:32 Time 16:32 - Procedures and Test Procedures and Tests throughout Hospitalization: Therapy Orders & Screens 04/27/21 17:02 Respiratory Therapy Assessment DAILY Comment: 04/27/21 21:01 Oxygen Nasal Cannula 2 lpm Comment: Respiratory Therapy Consult ROUTINE Comment: Reason For Exam: 04/27/21 23:46 Flutter Therapy UD Comment: Diagnosis: COPD exaserbation 04/27/21 23:53 Respiratory Therapy Assessment DAILY Comment: Diagnosis: COPD exaserbation 04/29/21 08:22 RT Miscellaneous Order ROUTINE Comment: Physician Instructions: Reason For Exam: WEAN OXYGEN TOLERATED, PLAN TO DC HOME 04/30 Diagnosis: COPD exaserbation 04/30/21 14:32 Qualify for Home Oxygen TODAY Comment: Diagnosis: COPD exaserbation Discharge Exam General Appearance: no apparent distress, alert Neurologic Exam: alert, oriented x 3, cooperative, normal mood/affect, nml cerebellar function, sensation nml, No motor deficits Eye Exam: PERRL, EOMI, eyes nml inspection Ears, Nose, Throat Exam: normal ENT inspection, pharynx normal, moist mucous membranes Neck Exam: normal inspection, non-tender, supple, full range of motion Respiratory Exam: normal breath sounds, lungs clear, No respiratory distress Cardiovascular Exam: regular rate/rhythm, normal heart sounds Gastrointestinal/Abdomen Exam: soft, No tenderness, No mass Male Genitalia Exam: deferred Rectal Exam: deferred Back Exam: normal inspection, normal range of motion, No CVA tenderness, No vertebral tenderness Extremity Exam: normal inspection, normal range of motion Skin Exam: normal color, warm, dry Final Diagnosis/Problem List - Final Discharge Diagnosis/Problem (1) COPD exacerbation Current Visit: Yes Status: Resolved Assessment & Plan: Last Vital Signs Temp 98.0 F 04/30/21 12:00 Pulse 107 H 04/30/21 12:18 Resp 22 04/30/21 12:18 BP 128/70 04/30/21 12:00 Pulse Ox 93 L 04/30/21 12:18 Allergies No Known Drug Allergies Allergy (Verified 04/27/21 16:16) Active Medications Hydrocodone Bitart/Acetaminophen ([place] 5/325 Mg) 1 tab PO Q6H/PRN PRN PRN Reason: PAIN Stop: 05/02/21 23:34 Last Admin: 04/30/21 04:38 Dose: 1 tab Documented by: Albuterol/Ipratropium (Duoneb 0.5-3 Mg/3 Ml Neb) 3 ml IH Q6HRT JUNAID Stop: 05/28/21 12:59 Last Admin: 04/30/21 12:15 Dose: 3 ml Documented by: Methylprednisolone Sodium Succinate 60 mg/ Sterile Water 2 ml 0 mg IV Q6HT JUNAID Stop: 05/27/21 21:00 Last Admin: 04/30/21 12:43 Dose: 60 mg Documented by: Enoxaparin Sodium (Enoxaparin Sodium) 40 mg SQ DAILY JUNAID Stop: 05/28/21 09:59 Last Admin: 04/30/21 08:44 Dose: 40 mg Documented by: Furosemide (Lasix 40 Mg) 40 mg PO DAILY JUNAID Stop: 05/28/21 09:59 Last Admin: 04/30/21 08:42 Dose: 40 mg Documented by: Sodium Chloride (Sodium Chloride 0.9% 1000 Ml) 1,000 mls @ 50 mls/hr IV .Q20H JUNAID Stop: 05/27/21 21:00 Last Admin: 04/29/21 21:48 Dose: 50 mls/hr Documented by: Ceftriaxone Sodium/Dextrose (Rocephin 1 Gm-D5w 50 Ml Bag) 1 g in 50 mls @ 100 mls/hr IV Q24H10 [facility] Stop: 05/02/21 09:59 Last Admin: 04/30/21 12:26 Dose: 100 mls/hr Documented by: Azithromycin (Zithromax 500 Mg/ 250 Ml Nacl Premix) 500 mg in 250 mls @ 250 mls/hr IV Q24H10 JUNAID Stop: 05/28/21 09:59 Last Admin: 04/30/21 08:42 Dose: 250 mls/hr Documented by: Insulin Glargine (Lantus Insulin) 40 unit SQ BID JUNAID Stop: 05/28/21 09:59 Last Admin: 04/30/21 08:42 Dose: 40 unit Documented by: Insulin Human Lispro (Humalog) 0 unit SQ UD PRN PRN Reason: HYPERGLYCEMIA Stop: 05/27/21 23:34 Last Admin: 04/30/21 12:45 Dose: 11 unit Documented by: Losartan Potassium (Cozaar 50 Mg) 100 mg PO DAILY [facility] Stop: 05/28/21 09:59 Last Admin: 04/30/21 08:42 Dose: 100 mg Documented by: Nicotine (Nicoderm Cq 14 Mg) 14 mg TOP Q24H [facility] Stop: 05/28/21 16:14 Last Admin: 04/29/21 17:39 Dose: 14 mg Documented by: Potassium Chloride (Klor Con 10 Meq) 20 meq PO DAILY [facility] Stop: 05/28/21 09:59 Last Admin: 04/30/21 08:41 Dose: 20 meq Documented by: Intake & Output 04/30/21 05/01/21 11:59 11:59 Intake Total 1080 360 Output Total 2700 Balance -1620 360 Orders 04/30/21 Discharge Routine Discharge/Telephone Order Routine Lab Tests 04/29/21 04/29/21 04/30/21 16:05 21:19 06:20 Sodium 140 Potassium 4.1 Chloride 104 Carbon Dioxide 28 Anion Gap 11.4 BUN 19 Creatinine 0.71 Estimated GFR > 60.0 Glucose 225 H POC Glucometer 426 H 427 H Calcium 8.6 04/30/21 04/30/21 07:31 11:24 Sodium Potassium Chloride Carbon Dioxide Anion Gap BUN Creatinine Estimated GFR Glucose POC Glucometer 201 H 369 H Calcium Code(s): J44.1 - CHRONIC OBSTRUCTIVE PULMONARY DISEASE W (ACUTE) EXACERBATION - Discharge Discharge Date: 04/30/21 Disposition: Home, Self-Care Condition: Stable Prescriptions: New Methylprednisolone 4 mg [Medrol 4 mg] 4 mg PO UD #1 packet Albuterol 8 gm Mdi Hfa [Ventolin Hfa MDI] 8 gm IH Q4H #1 Cephalexin Mh 500 mg [Keflex 500 mg] 500 mg PO QID #28 cap Methylprednisolone Packet [Medrol Dosepack] 4 mg PO UD #30 packet Continue Potassium Chloride 20 meq PO DAILY Losartan Potassium 100 mg PO DAILY Insulin Glargine,Hum.rec.anlog [Basaglar Kwikpen U-100] 40 unit SQ BID Furosemide 40 mg PO DAILY Albuterol 8 gm Mdi Hfa [Ventolin Hfa MDI] 8 gm IH Q4H #1 gm Instructions: Exacerbation of COPD (DC) Additional Instructions: CALL [facility] FOR ANY ISSUES OR CONCERNS REGARDING YOUR OXYGEN [phone] Follow up with: GITA GRAY [Primary Care Provider] - 5 Days Forms: Discharge Instructions
== END 2021-04-30 15:45 | disposition home or self-care (01) ==
LOC: ED 16:01 → MED SURG 20:55
PROVIDERS: ADMIT Family Medicine; ATTEND Family Medicine
DX: J44.1 Chronic obstructive pulmonary disease with (acute) exacerbation (principal); R53.1 Weakness; E11.9 Type 2 diabetes mellitus without complications; I10 Essential (primary) hypertension; Z79.899 Other long term (current) drug therapy; Z20.822 Contact with and (suspected) exposure to COVID-19
CPT/HCPCS: 36000; 36415; 71045; 80048; 80053; 81001; 82947; 83036; 83605; 83735; 83880; 84484; 85025; 85027; 85379; 85610; 87040; 87400; 93005; 94640; 94667; 94760; 96374; 99285; G0378; U0003; J0456; J0696; J1650; J1817; J2930; J7609; A9270-GY

== ENCOUNTER → 2021-08-18 | Day surgery (SDC) | payer OTHER ==
--- NOTE | 2021-08-17 11:40 | HP ---
DATE OF SURGERY: 08/18/2021 HISTORY OF PRESENT ILLNESS: The patient presents with complaints of umbilical hernia. There is a small umbilical hernia on physical exam. It has been painful at times. The patient desires surgical intervention. PAST MEDICAL HISTORY: Chronic obstructive pulmonary disease, diabetes, hypertension. PAST SURGICAL HISTORY: Rotator cuff repair. ALLERGIES: NKDA. MEDICATIONS: Insulin, losartan. FAMILY HISTORY: None reported. SOCIAL HISTORY: Smokes a half pack of cigarettes a day. REVIEW OF SYSTEMS: CONSTITUTIONAL: Denies fever or chills. CHEST: Denies shortness of breath. CVS: Denies chest pain. ABDOMEN: Reports umbilical hernia pain. Denies nausea, vomiting, diarrhea, constipation or rectal bleeding. PHYSICAL EXAMINATION: GENERAL: No acute distress. CHEST: Nonlabored. No shortness of breath. CVS: Regular rate and rhythm. ABDOMEN: Soft, tender umbilical hernia. IMPRESSION: Symptomatic umbilical hernia. PLAN: Umbilical hernia repair with mesh by Dr. Brayan Wood. As dictated by Anna Young NP.
[~2021-08-18] MED LIST: BRIDION 200MG/2ML IV ONE; DIPRIVAN 200 MG/20 ML IV ONE; EPINEPHRINE 1MG/ML AMP ONE; GARAMYCIN INJ ONE; KEFZOL 1 GM ONE; KEFZOL 1 GM** 3 G in Sodium Chloride 0.9% 50 ML 50 ML IV SCH; Lactated Ringers 1,000 ML IV ONE; Lactated Ringers 1,000 ML IV SCH; Marcaine 0.5%/Epinephrine 10 ML ONE; NORCO 5/325 MG ONE; NORCO 5/325 MG PO PRN; Naropin 0.5% 30 ML VIAL ONE; PHENYLEPHRINE HCL ONE; Quelicin Fliptop 200 MG/10 ML ONE; SUBLIMAZE 100 MCG/2 ML ONE; SUBLIMAZE 250 MCG/5 ML ONE; Sensorcaine 0.25% 10 ML ONE; Versed 2 MG/2 ML Injection ONE; Zemuron 100 MG/10 ML ONE
[2021-08-18 12:12] LABS: ANION GAP 10.3 MEQ/L (5-15); BLOOD UREA NITROGEN 15 mg/dL (9-20); CHLORIDE 103 mmol/L (98-107); Calcium 8.7 mg/dL (8.4-10.2); Carbon Dioxide 30 mmol/L (22-30); Creatinine 1 0.83 mg/dL (0.66-1.25); EST GLOMERULAR FILTRATION RATE > 60.0 ML/MIN; Glucose 133 mg/dL (74-106); Potassium 3.7 mmol/L (3.5-5.1); SODIUM 139 mmol/L (137-145)
[2021-08-18 14:01] VITALS: PULSE 81; O2SAT 94
[2021-08-18 14:41] VITALS: BP 150/90
--- NOTE | 2021-08-18 15:05 | OP ---
SURGERY DATE/TIME: 08/18/2021 1121 PREOPERATIVE DIAGNOSIS: Symptomatic umbilical hernia. POSTOPERATIVE DIAGNOSIS: Symptomatic umbilical hernia. PROCEDURE: Umbilical hernia primary repair incarcerated with omentum. SURGEON: Brayan Wood M.D. ANESTHESIA: General. COMPLICATIONS: None. CONDITION: Stable. INDICATION: Symptomatic hernia. DESCRIPTION OF PROCEDURE: Taken to surgery. General anesthetic. Routine prep and drape. Vertical incision. The defect was only 1 cm but there was a 4 x 2 cm portion of omentum that was totally mobilized and reduced. Fascia approximated with six sutures of 0 Prolene on large needle placed and tied down. It was tied down satisfactorily with no tension. No mesh was used. Closed with azalia and sterile dressing. The patient tolerated the procedure satisfactorily.
== END ==
LOC: SDC 09:34
PROVIDERS: ATTEND Surgery
DX: K42.0 Umbilical hernia with obstruction, without gangrene (principal); E11.9 Type 2 diabetes mellitus without complications; I10 Essential (primary) hypertension; J44.9 Chronic obstructive pulmonary disease, unspecified; Z79.899 Other long term (current) drug therapy
CPT/HCPCS: 36415; 80048; J0171; J0330; J0690; J1580; J2250; J2370; J2704; J2795; J3010; A9270-GY